=== PATIENT | female | born 1980 | race American Indian/Alaskan Native ===

== ENCOUNTER 2016-10-03 21:42 | Inpatient (IN) | payer BC ==
[2016-10-03] MEDS ORDERED: DiphenhydrAMINE 50 mg/ml Inj IVP STA (23:19)
[2016-10-03] MEDS ORDERED: Sodium Chloride 0.9% 1,000 ML IV SCH (23:30)
[2016-10-03 23:45] LABS: PH,URINE 6.5 (4.7-8.0); URINE BILIRUBIN NEGATIVE (NEGATIVE); URINE BLOOD NEGATIVE (NEGATIVE); URINE GLUCOSE (UA) NEGATIVE (NEGATIVE); URINE KETONE NEGATIVE (NEGATIVE); URINE LEUKOCYTE ESTERASE NEGATIVE Leu/uL (NEGATIVE); URINE PROTEIN 100 mg/dL (<30 mg/dL)
[2016-10-04 00:12] LABS: URINE APPEARANCE SL CLOUDY (CLEAR); URINE COLOR YELLOW (YELLOW)
[2016-10-04 00:14] LABS: URINE RBC 0 - 2 /hpf (0-2); URINE WBC 0 - 2 /hpf (0-6)
[2016-10-04 00:15] LABS: BASO # 0.01 K/mm3 (0.0-2.0); BASO % 0.1 % (0.0-3.0); GRAN # 14.74 (1.4-6.5); GRAN % 90.3 % (50.0-68.0); HEMATOCRIT 31.8 % (36.0-48.0); LYMPH # 0.9 (1.2-3.4); LYMPH % 5.8 % (22.0-35.0); MEAN CELL VOLUME 67.8 fl (80.0-105.0); MEAN CORPUSCULAR HEMOGLOBIN 22.4 pg (25.0-35.0); MEAN PLATELET VOLUME 8.3 fl (7.0-11.0); MONO # 0.6 (0.1-0.6); MONO % 3.8 % (1.0-6.0); PLATELET COUNT 377 10^3/uL (120.0-450.0); RED CELL DISTRIBUTION WIDTH 17.5 % (11.5-14.5); WHITE BLOOD COUNT 16.3 10^3/ul (4.5-11.0)
[2016-10-04 00:15] LABS: URINE BACTERIA SMALL (NEG)
[2016-10-04 00:19] LABS: ALB/GLOB RATIO 1.3 (1.1-1.8); ALKALINE PHOSPHATASE 64 U/L (38-133); ALT/SGPT 26 U/L (7-56); AST/SGOT 31 U/L (15-39); BILIRUBIN,TOTAL 0.1 mg/dL (0.2-1.3); BLOOD UREA NITROGEN 14 mg/dL (7-21); CALCIUM 8.9 mg/dL (8.4-10.5); CARBON DIOXIDE 18 mmol/L (21-33); GFR AFRICAN-AMERICAN > 60; GLUCOSE,RANDOM 182 mg/dL (70-110); POTASSIUM 3.8 mmol/L (3.6-5.0); SODIUM 136 mmol/L (132-148); TOTAL PROTEIN 7.7 g/dL (5.8-8.3)
[2016-10-04 00:25] LABS: CHLORIDE 103 mmol/L (98-107)
[2016-10-04 00:51] LABS: BAND 3 % (0-2); HYPOCHROMIA SLIGHT; NEUTROPHIL 86 % (50.0-70.0); PLATELET ESTIMATE NORMAL (NORMAL)
[2016-10-04 00:52] LABS: MICROCYTOSIS 1+
[2016-10-04 02:05] LABS: VENOUS BLOOD GAS BASE EXCESS -3.7 mmol/L (0.0-2.0)
[2016-10-04] MEDS ORDERED: Vancomycin 1gm in NS 250ml 1 GM/250 ML BAG IVPB STA (02:09)
[2016-10-04] MEDS: Sodium Chloride 0.9% 2,500 ML IV STA ×2 (02:22→02:23)
[2016-10-04] MEDS ORDERED: cefTRIAXone 2 GM IN NS 2 GM/100 ML BAG IVPB ONE (02:30)
[2016-10-04] MEDS ORDERED: Iohexol 350 MG/100 ML VIAL ONE (02:33)
--- NOTE | 2016-10-04 03:01 | ED PDOC ---
Arrival/HPI - General Chief Complaint: Headache Time Seen by Provider: 10/03/16 22:55 Historian: Patient - History of Present Illness Narrative History of Present Illness (Text): 10/04/16 22:00 Renetta Sprague is a 36 year old female, whose past medical history includes anemia , presents to the emergency department with multiple complaints consisting of sudden onset of body aches, nausea, throbbing headache at the top of the head, posterior neck pain, chills and cough. Patient reports she was feeling well earlier today, until a few hours prior to arrival. She notes taking an Aleve but there was no significant relief and states she does not suffer from migraines. Patient denies chest pain, shortness of breath, fever, vomiting, diarrhea, abdominal pain, dizziness or other complaints. PMD: Dr. Cabrera Time/Duration: Prior to Arrival Symptom Onset: Sudden Symptom Course: Unchanged Quality: Aching, Throbbing (headache on top of head) Associated Symptoms (Text): body aches, nausea, headache, posterior neck pain, cough, and chills. Past Medical History - Provider Review Nursing Documentation Reviewed: Yes - Infectious Disease Hx of Infectious Diseases: None - Tetanus Immunization Tetanus Immunization: Unknown - Past Medical History Past Medical History: No Previous - Neurological Hx Neurological Disorder: Yes Other/Comment: Brain tumor as a child - Musculoskeletal/Rheumatological Hx Musculoskeletal Disorders: Yes Other/Comment: Nerve damage - Psychiatric Hx Depression: No Hx Emotional Abuse: No Hx Physical Abuse: No Hx Substance Use: No - Surgical History Other/Comment: Brain tumor removal during childhood - Anesthesia Hx Anesthesia: Yes Hx Anesthesia Reactions: No - Suicidal Assessment Feels Threatened In Home Enviroment: No Family/Social History - Physician Review Nursing Documentation Reviewed: Yes Family/Social History: Unknown Family HX Smoking Status: Light Smoker < 10 Cigarettes Daily Hx Alcohol Use: Yes Frequency of alcohol use: Socially Hx Substance Use: No Hx Substance Use Treatment: No Allergies/Home Meds Allergies/Adverse Reactions: Allergies No Known Allergies Allergy (Verified 10/03/16 22:33) Home Medications: Home Meds Medication Instructions Recorded Confirmed No Known Home Med [No Known Home 02/02/14 10/03/16 Med] Review of Systems - Review of Systems Constitutional: Other (body aches and chills ). absent: Fevers Respiratory: Cough. absent: SOB Gastrointestinal: Nausea. absent: Vomiting Genitourinary Female: absent: Dysuria Musculoskeletal: Neck Pain Neurological: Headache Physical Exam Vital Signs Reviewed: Yes Vital Signs Temp Pulse Resp BP Pulse Ox 10/04/16 06:05 87 18 120/64 99 10/04/16 05:30 96 H 16 142/70 99 10/04/16 04:30 104 H 18 111/53 L 99 10/04/16 03:15 100.7 F H 116 H 20 113/57 L 100 10/04/16 02:00 120 H 20 112/57 L 100 10/04/16 01:40 118 H 18 109/58 L 100 10/04/16 01:23 102.7 F H 115 H 20 114/54 L 100 10/04/16 00:19 98.1 F 10/03/16 22:33 99.8 F H 110 H 20 146/73 98 Temperature: Afebrile Blood Pressure: Normal Pulse: Tachycardic Respiratory Rate: Normal Appearance: Positive for: Well-Appearing, Non-Toxic, Comfortable Pain Distress: Mild Mental Status: Positive for: Alert and Oriented X 3 - Systems Exam Head: Present: Atraumatic, Normocephalic Pupils: Present: PERRL Extroacular Muscles: Present: EOMI Conjunctiva: Present: Normal Mouth: Present: Dry Neck: Present: Normal Range of Motion, MIDLINE TENDERNESS Respiratory/Chest: Present: Clear to Auscultation, Good Air Exchange. No: Respiratory Distress, Accessory Muscle Use Cardiovascular: Present: Regular Rate and Rhythm, Normal S1, S2. No: Murmurs Abdomen: Present: Normal Bowel Sounds. No: Tenderness, Distention, Peritoneal Signs Back: Present: Normal Inspection Upper Extremity: Present: Normal Inspection. No: Cyanosis, Edema Lower Extremity: Present: Normal Inspection. No: Edema Neurological: Present: GCS=15, CN II-XII Intact, Speech Normal Skin: Present: Warm, Dry, Normal Color. No: Rashes Psychiatric: Present: Alert, Oriented x 3, Normal Insight, Normal Concentration Medical Decision Making ED Course and Treatment: 10/04/16 Impression: 36 year old female with multiple complaints consisting of body aches, nausea, headache, posterior neck pain, chills, and cough Plan: -- CT Cervical Spine with contrast -- Head CT without contrast -- Chest X-ray -- Labs -- Urinalysis -- Benadryl, Reglan, Tylenol, Rocephin, Vancomycin, and Sodium Chloride -- Reassess and disposition Progress Notes: 10/04/16 00:20 Reevaluation: On reevaluation the patient's blood work showed to have elevated blood count of 16 and there were noted bands. A head CT without contrast and cervical spine CT with contrast was ordered. 10/04/16 00:50 CT Head Without Intravenous Contrast FINDINGS: Brain: Unremarkable. No hemorrhage. No significant white matter disease. No edema. Ventricles: Unremarkable. No ventriculomegaly. Bones/joints: Patient status post occipital craniectomy with postoperative changes in the posterior fossa No acute fracture. Soft tissues: Unremarkable. Sinuses: Opacified sphenoid sinus compatible with sinusitis. Mastoid air cells: Unremarkable as visualized. No mastoid effusion. IMPRESSION: Opacified sphenoid sinus compatible with sinusitis. 10/04/16 00:50 CT Cervical Spine With Intravenous Contrast FINDINGS: Vertebrae: Unremarkable. No acute fracture. Discs/spinal canal/neural foramina: Cervical degenerative disc disease and facet joint arthropathy noted. No spinal canal stenosis. Soft tissues: Unremarkable. Lung apices: Unremarkable as visualized. IMPRESSION: No acute findings. 10/04/16 07:14 Patient seen and examined with ALEJANDRA Martinez; given fever and sepsis picture with focus of headache and neck pain, patient needing to be ruled out for meningitis. LP done (in sitting position) with cloudy fluid. Analysis showing nearly 7000 WBC (w/ just 12 RBCs) and protein of 248. Preliminary count suggests 88% segmented on the diff, but awaiting official results. Findings are consistent with possible bacterial meningitis - she was already given 2 grams of rocephin and 1 G of vancomycin. Acyclovir and ampicillin added. Case was discussed with Dr. Bettencourt. Consult for Dr. Liang. Case also discussed with Dr. Carvajal for ICU admission. - Lab Interpretations Lab Results: 10/03/16 23:50 10/03/16 23:50 Lab Results 10/04/16 04:45: pO2 38, VBG pH 7.24 L, VBG pCO2 48.0, VBG HCO3 20.6 L, VBG Total CO2 22.1, VBG O2 Sat (Calc) 69.3 H, VBG Base Excess -6.9 L, VBG Potassium 4.1, Glucose 149 H, Lactate 3.1 H, FiO2 21.0, Sodium 140.0, Chloride 109.0 H, Venous Blood Potassium 4.1 10/04/16 04:35: Fluid Type Spinal fluid, CSF Volume 2 H, CSF Appearance Cloudy, CSF WBC 6852.0 H, CSF RBC 12.0 H, CSF Total Cell Counted 100 H, CSF Neutrophils 89 H, CSF Lymphocytes 1.0 H, CSF Monos/Macrophages 10 H, CSF Comment Clear 10/04/16 04:35: CSF Glucose 67, CSF Total Protein 248.0 H* 10/04/16 01:45: pO2 174 H, VBG pH 7.40, VBG pCO2 33.0 L, VBG HCO3 20.4 L, VBG Total CO2 21.4 L, VBG O2 Sat (Calc) 99.8 H, VBG Base Excess -3.7 L, VBG Potassium 4.1, Glucose 175 H, Lactate 3.6 H, FiO2 21.0, Sodium 135.0, Chloride 105.0, Venous Blood Potassium 4.1 10/03/16 23:50: Sodium 136, Potassium 3.8, Chloride 103, Carbon Dioxide 18 L, Anion Gap 19, BUN 14, Creatinine 0.9, Est GFR ( Amer) > 60, Est GFR (Non- Af Amer) > 60, Random Glucose 182 H, Calcium 8.9, Total Bilirubin 0.1 L, AST 31 , ALT 26, Alkaline Phosphatase 64, Total Protein 7.7, Albumin 4.3, Globulin 3.4 , Albumin/Globulin Ratio 1.3 10/03/16 23:50: WBC 16.3 H, RBC 4.69, Hgb 10.5 L, Hct 31.8 L, MCV 67.8 L, MCH 22.4 L, MCHC 33.0, RDW 17.5 H, Plt Count 377, MPV 8.3, Gran % 90.3 H, Lymph % ( Auto) 5.8 L, [place] % (Auto) 3.8, Eos % (Auto) 0.0 L, Baso % (Auto) 0.1, Gran # 14.74 H, Lymph # 0.9 L, [place] # 0.6, Eos # 0.0, Baso # 0.01, Neutrophils % ( Manual) 86 H, Band Neutrophils % 3 H, Lymphocytes % (Manual) 8 L, Monocytes % ( Manual) 3, Platelet Evaluation Normal, Hypochromasia Slight, Microcytosis ( manual) 1+ 10/03/16 23:33: Urine Color Yellow, Urine Appearance Sl cloudy, Urine pH 6.5, Ur Specific [place] 1.025, Urine Protein 100 H, Urine Glucose (UA) Negative, Urine Ketones Negative, Urine Blood Negative, Urine Nitrate Negative, Urine Bilirubin Negative, Urine Urobilinogen 1.0 H, Ur Leukocyte Esterase Negative, Urine RBC 0 - 2, Urine WBC 0 - 2, Ur Epithelial Cells 4 - 5, Urine Bacteria Small I have reviewed the lab results: Yes - RAD Interpretation Radiology Orders: 10/04/16 00:45 CERVICAL SPINE W/CONTRAST [CT] Stat HEAD W/O CONTRAST [CT] Stat 10/04/16 01:31 CHEST ONE VIEW [RAD] Stat Manager Of Engineering: Radiologist - Medication Orders Current Medication Orders: Acyclovir 270 mg/ Sodium (Chloride) 100 mls @ 100 mls/hr IV STAT STA PRN Reason: Protocol Stop: 10/04/16 07:56 Ampicillin 2 gm/ Sodium (Chloride) 100 mls @ 200 mls/hr IVPB STAT STA Stop: 10/04/16 07:29 Discontinued Medications Acetaminophen (Tylenol 325mg Tab) 975 mg PO STAT STA Stop: 10/04/16 01:34 Last Admin: 10/04/16 01:39 Dose: 975 mg Diphenhydramine HCl (Benadryl) 25 mg IVP STAT STA Stop: 10/03/16 23:20 Last Admin: 10/03/16 23:57 Dose: 25 mg Sodium Chloride (Sodium Chloride 0.9%) 1,000 mls @ 200 mls/hr IV .Q5H GUERO Last Admin: 10/03/16 23:56 Dose: 200 mls/hr Sodium Chloride (Sodium Chloride 0.9%) 2,500 mls @ 999 mls/hr IV .Q2H31M STA Stop: 10/04/16 04:38 Last Admin: 10/04/16 02:22 Dose: 999 mls/hr Ceftriaxone Sodium (Rocephin 2 Gm Ivpb) 2 gm in 100 mls @ 100 mls/hr IVPB ONCE ONE PRN Reason: Protocol Stop: 10/04/16 03:29 Last Admin: 10/04/16 03:13 Dose: 100 mls/hr Vancomycin HCl (Vancomycin 1gm) 1 gm in 250 mls @ 133.333 mls/hr IVPB STAT STA PRN Reason: Protocol Stop: 10/04/16 04:01 Last Admin: 10/04/16 04:59 Dose: 133.333 mls/hr Iohexol (Omnipaque 350 100 Ml) Confirm Administered Dose 350 mg .ROUTE .STK-MED ONE Stop: 10/04/16 02:34 Lidocaine HCl (Lidocaine 1% (20ml)) Confirm Administered Dose 20 ml .ROUTE .STK- MED ONE Stop: 10/04/16 03:41 Metoclopramide HCl (Reglan) 10 mg IVP STAT STA Stop: 10/03/16 23:24 Last Admin: 10/03/16 23:56 Dose: 10 mg - Scribe Statement The provider has reviewed the documentation as recorded by the Scribe 10/04/2016 Mckenna Momin Provider Scribe Attestation: All medical record entries made by the Scribe were at my direction and personally dictated by me. I have reviewed the chart and agree that the record accurately reflects my personal performance of the history, physical exam, medical decision making, and the department course for this patient. I have also personally directed, reviewed, and agree with the discharge instructions and disposition. Disposition/Present on Arrival - Present on Arrival Any Indicators Present on Arrival: No History of DVT/PE: No History of Uncontrolled Diabetes: No Urinary Catheter: No History of Decub. Ulcer: No History Surgical Site Infection Following: None - Disposition Have Diagnosis and Disposition been Completed?: Yes Diagnosis: Meningitis Disposition: HOSPITALIZED Disposition Time: 03:00 Patient Plan: Admission Condition: CRITICAL Forms: [employer] (Armenian) - Lumbar Puncture Procedure LP Procedure: Discussed Procedure W/Pt, Consent Form Completed, Head CT Completed, Use Of Sterile Technique, Injection Site Prepped W/Betadine Position for Procedure: Sitting Injection Location: L 4-5 (Fluid obtained appears cloudy. Tolerated procedure well.)
[2016-10-04] MEDS ORDERED: Lidocaine 1%/Epinephrine 1:100000 30 ml vial IJ STA (03:34)
[2016-10-04] MEDS ORDERED: Lidocaine 1% Inj (20ml) ONE (03:40)
[2016-10-04 04:46] LABS: FLUID TYPE SPINAL FLUID
[2016-10-04 05:10] LABS: VENOUS BLOOD GAS BASE EXCESS -6.9 mmol/L (0.0-2.0); VENOUS BLOOD PH 7.24 (7.32-7.43)
[2016-10-04 06:19] LABS: CSF COMMENT CLEAR
[2016-10-04] MEDS ORDERED: SODIUM CHLORIDE 0.9% IV STA (06:57)
[2016-10-04] MEDS ORDERED: ACYCLOVIR IV STA (06:57)
[2016-10-04] MEDS ORDERED: Ampicillin 2 GM in Sodium Chloride 0.9% 100 ML IVPB STA (07:00)
[2016-10-04 07:11] LABS: CSF NEUTROPHIL 89 % (0-0); CSF TOTAL COUNT 100 (0-0)
--- NOTE | 2016-10-04 07:32 | CP.PCM.HP ---
<Rose Kwong - Last Filed: 10/04/16 11:42> History of Present Illness - History of Present Illness History of Present Illness: This is a 36Y F with PMH anemia and benign brain tumor who came to ED with headache and neck pain x 2 days. Patient reports the headache is at the top of her head and radiated down to her neck. She also reports having subjective fevers. She denies sick contacts, recent travel, sexual activity, IVDA or working with many people or small children. She denies CP, SOB, n/v/d, numbness/ tingling, vision changes, palpitations, cough or dysuria/hematuria. Patient lives with daughter who is 21 and works at [employer]. Neither of them had meningitis vaccines. In ED, patient had head CT which was negative as well as LP. CXR showed no active disease. 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 Denies being sexually active. Lives in 3 family home with daughter. 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 FH: Non contributory Present on Admission - Present on Admission Any Indicators Present on Admission: No Review of Systems - Constitutional Constitutional: Chills, Fever, Headache - EENT Eyes: absent: Change in Vision Ears: absent: Decreased Hearing, Ear Discharge Nose/Mouth/Throat: absent: Nasal Congestion, Neck Pain, Neck Mass - Cardiovascular Cardiovascular: absent: Chest Pain, Leg Edema, Pedal Edema, Syncope - Respiratory Respiratory: absent: Cough, Dyspnea, Hemoptysis - Gastrointestinal Gastrointestinal: absent: Abdominal Pain, Diarrhea, Nausea, Vomiting - Genitourinary Genitourinary: absent: Change in Urinary Stream, Dysuria, Pyuria - Musculoskeletal Musculoskeletal: Neck Pain. absent: Myalgias, Numbness, Tingling - Integumentary Integumentary: absent: Bleeding Lesions, Change in Hair, Change in Pigmentation - Neurological Neurological: Headaches. absent: Confusion, Dizziness, Numbness, Loss of Vision , Memory Loss, Syncope, Tingling, Tremor, Vertigo, Weakness - Psychiatric Psychiatric: absent: Anxiety, Depression Past Patient History - Infectious Disease Hx of Infectious Diseases: None - Tetanus Immunizations Tetanus Immunization: Unknown - Past Social History Smoking Status: Light Smoker < 10 Cigarettes Daily Alcohol: None Drugs: Denies Home Situation {Lives}: With Family - NEUROLOGICAL Hx Neurological Disorder: Yes Other/Comment: Brain tumor as a child - MUSCULOSKELETAL/RHEUMATOLOGICAL Hx Musculoskeletal Disorders: Yes Other/Comment: Nerve damage - PSYCHIATRIC Hx Depression: No Hx Emotional Abuse: No Hx Physical Abuse: No Hx Substance Use: No - SURGICAL HISTORY Other/Comment: Brain tumor removal during childhood - ANESTHESIA Hx Anesthesia: Yes Hx Anesthesia Reactions: No Meds Allergies/Adverse Reactions: Allergies Allergy/AdvReac Type Severity Reaction Status Date / Time No Known Allergies Allergy Verified 10/03/16 22:33 Physical Exam - Constitutional Appears: No Acute Distress - Head Exam Head Exam: ATRAUMATIC, NORMAL INSPECTION, NORMOCEPHALIC - Eye Exam Eye Exam: Normal appearance, PERRL Pupil Exam: NORMAL ACCOMODATION, PERRL - ENT Exam ENT Exam: Mucous Membranes Moist - Respiratory Exam Respiratory Exam: Clear to Auscultation Bilateral, NORMAL BREATHING PATTERN. absent: Rales, Rhonchi, Wheezes - Cardiovascular Exam Cardiovascular Exam: REGULAR RHYTHM, +S1, +S2. absent: Gallop, Rubs, Systolic Murmur - GI/Abdominal Exam GI & Abdominal Exam: Normal Bowel Sounds, Soft. absent: Mass, Rebound, Rigid, Tenderness - Extremities Exam Extremities exam: Positive for: normal inspection. Negative for: calf tenderness, pedal edema - Neurological Exam Neurological exam: Alert, CN II-XII Intact, Oriented x3 - Expanded Neurological Exam Expanded Patient oriented to: person, place, time Cranial nerves: EOM's Intact: Normal, Facial P[place]y w/Forehead Movement: Normal , Facial [place]alsey w/o Forehead Movement: Normal, Facial Sensation: Normal Sensory exam: Lower Extremity Light Touch: Normal, Lower Extremity Pin Prick: Normal, Lower Extremity Temperature: Normal, Upper Extremity 2 Point Discrimination: Normal, Upper Extremity Light Touch: Normal, Upper Extremity Pin Prick: Normal, Upper Extremity Temperature: Normal Neuro motor strength exam: Left Upper Extremity: 5, Right Upper Extremity: 5, Left Lower Extremity: 5, Right Lower Extremity: 5 Coma Scale Eye Opening: SPONTANEOUS Coma Scale Motor Response: OBEYS COMMANDS Coma Scale Verbal: Oriented Coma Scale Total: 15 - Psychiatric Exam Psychiatric exam: Normal Affect, Normal Mood - Skin Skin Exam: Dry, Intact, Normal Color, Warm - Additional Findings Additional findings: + Brudinkski sign, Neg Kernig sign Results - Vital Signs Recent Vital Signs: Last Vital Signs Temp 100.7 F H 10/04/16 03:15 Pulse 87 10/04/16 06:05 Resp 18 10/04/16 06:05 BP 120/64 10/04/16 06:05 Pulse Ox 99 10/04/16 06:05 - Labs Result Diagrams: 10/03/16 23:50 10/03/16 23:50 Assessment & Plan - Assessment and Plan (Free Text) Assessment: This is a 36Y F with PMH anemia, brain tumor admitted for bacterial meningitis. Plan: 1. Meningitis (Bacterial) - Etiology unclear - LP showed elevated WBC and protein suggesting bacterial meningitis - ID consulted - Dilaudid prn pain, Zofran prn nausea - Nephro consulted - Head Ct negative, CT spine negative - MRI brain showed opacified sinus, but no acute intracranial abnormality - Continue Decadron - Continue Rocephin, Vanc - Tylenol prn fever - Airborne precautions - HIV, RPR, procal, lactic acid 2. Anemia- Microcytic - Pt has history of anemia secondary to menorrhagia - Will check sickle cell screen - Hgb electrophoresis, iron studies - Will continue to monitor GI ppx: Protonix DVT ppx: SCDs Dispo: Patient's family notified to either go to ED or see PMD for prophylaxis for meningitis. Case seen, discussed with attending Humera Kwong PGY2 - Date & Time Date: 10/04/16 Time: 11:40 Decision To Admit - Pt Status Changed To: Hospital Disposition Of: Inpatient Admission - Admit Certification Admit to Inpatient:: After my assessment, the patient will require hospitalization for at least two midnights. This is because of the severity of symptoms shown, intensity of services needed, and/or the medical risk in this patient being treated as an outpatient. - . Bed Request Type: Critical Care Admitting Physician: Ced Bettencourt <Ced Bettencourt - Last Filed: 11/02/16 21:31> Results - Vital Signs Recent Vital Signs: Last Vital Signs Temp 98.2 F 10/09/16 08:40 Pulse 91 H 10/09/16 08:40 Resp 18 10/09/16 08:40 BP 117/79 10/09/16 08:40 Pulse Ox 100 08/27/17 08:40 - Labs Result Diagrams: 10/09/16 06:00 10/09/16 06:00 Attending/Attestation - Attestation I have personally seen and examined this patient.: Yes I have fully participated in the care of the patient.: Yes I have reviewed all pertinent clinical information: Yes
--- NOTE | 2016-10-04 07:47 | CT ---
PROCEDURE: CT Cervical Spine without contrast HISTORY: <fever, neck pain> COMPARISON: None available. TECHNIQUE: Axial computed tomography images were obtained of the cervical spine without the use of intravenous contrast. Coronal and sagittal reformatted images were created and reviewed. Radiation dose: Total exam DLP = 1135.22 mGy-cm. This CT exam was performed using one or more of the following dose reduction techniques: Automated exposure control, adjustment of the mA and/or kV according to patient size, and/or use of iterative reconstruction technique. FINDINGS: VERTEBRAE: No fracture. Cervical spine straightening - post occipital craniectomy changes noted. C5-6 and C6-7 cervical spondylosis DISCS/SPINAL CANAL/NEURAL FORAMINA: No significant central canal or neural foraminal stenosis. With the exception of mild -moderate left C6-7 neural foraminal compromise from endplate ridging and mild disc space narrowing at this level Discs heights are grossly preserved. -save C5-6 and C6-7 PARASPINAL SOFT TISSUES: A few hyperplastic bilateral cervical lymph nodes are noted OTHER FINDINGS: None. IMPRESSION: No cervical fracture or cervical lytic lesion. Post occipital craniectomy changes noted. There are also relative areas of hypodensity seen the posterior fossa likely relating to the post occipital craniectomy related changes for reasons for it. Please note the same-day V rad preliminary report for the CT head C5-6 and C6-7 cervical spondylosis with intervening disc space narrowing. The left-sided cervical spondylosis at C6-7 encroaches on the left are foramen- mild-moderate compromise is estimated
--- NOTE | 2016-10-04 07:48 | RAD ---
PROCEDURE: CHEST RADIOGRAPH, 1 VIEW HISTORY: Sepsis Patient COMPARISON: None available. FINDINGS: LUNGS: Clear. PLEURA: No pneumothorax or pleural fluid seen. CARDIOVASCULAR: Normal. OSSEOUS STRUCTURES: No significant abnormalities. VISUALIZED UPPER ABDOMEN: Normal. OTHER FINDINGS: None. IMPRESSION: No active disease. . No infiltrate appreciated
--- NOTE | 2016-10-04 09:09 | CT ---
PROCEDURE: CT HEAD WITHOUT CONTRAST. HISTORY: headache COMPARISON: None available. TECHNIQUE: Axial computed tomography images were obtained through the head/brain without intravenous contrast. Radiation dose: Total exam DLP = 725 mGy-cm. This CT exam was performed using one or more of the following dose reduction techniques: Automated exposure control, adjustment of the mA and/or kV according to patient size, and/or use of iterative reconstruction technique. FINDINGS: HEMORRHAGE: No intracranial hemorrhage. BRAIN: No mass effect or edema. There is an operative defect in the cerebellum on the right side. There is a suboccipital craniotomy defect. There are no acute intracranial findings VENTRICLES: Unremarkable. No hydrocephalus. CALVARIUM: Unremarkable. PARANASAL SINUSES: There is complete opacification of the sphenoid sinus. There is a focal bony defect on the left side of the sphenoid sinus seen on image 12 series 3. This could potentially be a source of intracranial infection. Follow-up is suggested. MASTOID AIR CELLS: Unremarkable as visualized. No inflammatory changes. OTHER FINDINGS: The report concurs with the preliminary [facility] report IMPRESSION: There is complete opacification of the sphenoid sinus. There is a focal bony defect on the left side of the sphenoid sinus seen on image 12 series 3. This could potentially be a source of intracranial infection. Follow-up is suggested. There are no acute intracranial findings
[2016-10-04] MEDS ORDERED: Gadodiamide 287 MG/ML VIAL (15ML) IV ONE (09:59)
[2016-10-04] MEDS: Sodium Chloride 0.9% 1,000 ML IV SCH ×2 (10:39→21:44)
[2016-10-04] MEDS ORDERED: HYDROmorphone 0.5 mg/0.5 ml ISec IVP PRN (11:00)
--- NOTE | 2016-10-04 11:21 | MRI ---
PROCEDURE: MRI BRAIN WITH AND WITHOUT CONTRAST HISTORY: CRANIECTOMY/??MENINIGITIS COMPARISON: CT of the head 10/04/2016 TECHNIQUE: Multiplanar, multisequence MR images of the brain were obtained with and without intravenous contrast enhancement. FINDINGS: HEMORRHAGE: None DWI: No evidence of an acute or early subacute infarction. BRAIN PARENCHYMA: No mass,mass effect or edema. There is a surgical defect in the right cerebellar hemisphere ENHANCEMENT: No abnormal intracranial enhancement. VENTRICLES: Unremarkable. No hydrocephalus. CRANIUM: Unremarkable. ORBITS: Grossly unremarkable. PARANASAL SINUSES/MASTOIDS: As seen on the CT scan there is complete opacification of the sphenoid sinus. The CT showed a defect in the left side of the sphenoid sinus which is difficult to appreciate on MRI. However there is no evidence of intracranial infection adjacent to this site. VASCULAR SYSTEM: Skull base flow voids intact. OTHER FINDINGS: None . IMPRESSION: Opacified sphenoid sinus. No evidence of intracranial infection
[2016-10-04 11:43] LABS: RETIC% 0.85 % (0.5-1.5)
[2016-10-04 11:45] LABS: INR 1.14 (0.93-1.08); PARTIAL THROMBOPLASTIN TIME 27.3 Seconds (23.7-30.8)
--- NOTE | 2016-10-04 12:00 | CP.PCM.CON ---
History of Present Illness - History of Present Illness History of Present Illness: 36 year old female with PMH of chronic anemia, obesity with BMI 33, history of brain tumor as a child S/P craniectomy and removal of tumor, neuropathy came in to [facility] complaining of headache and mild photophobia associated with some neck pain, fever and chills since yesterday. She does not have chronic headaches. She denies contact with sick children, no animal contacts, no travel to wooded areas, no denies insect bites, no bug bites. 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 She denies sore throat, no cough or colds, no chest pain, no SOB, no abdominal pain, no diarrhea, no dysuria. In the ED, lumbar puncture was done which showed CSF WBC's of 6852 and high CSF protein at 248. Infectious diseases consult is requested to further evaluate and manage. Review of Systems - Review of Systems All systems: reviewed and no additional remarkable complaints except (as per HPI ) Past Patient History - Infectious Disease Hx of Infectious Diseases: None - Tetanus Immunizations Tetanus Immunization: Unknown - Past Social History Smoking Status: Light Smoker < 10 Cigarettes Daily - NEUROLOGICAL Hx Neurological Disorder: Yes Other/Comment: Brain tumor as a child - MUSCULOSKELETAL/RHEUMATOLOGICAL Hx Musculoskeletal Disorders: Yes Other/Comment: Nerve damage - PSYCHIATRIC Hx Depression: No Hx Emotional Abuse: No Hx Physical Abuse: No Hx Substance Use: No - SURGICAL HISTORY Other/Comment: Brain tumor removal during childhood - ANESTHESIA Hx Anesthesia: Yes Hx Anesthesia Reactions: No Meds Allergies/Adverse Reactions: Allergies Allergy/AdvReac Type Severity Reaction Status Date / Time No Known Allergies Allergy Verified 10/03/16 22:33 - Medications Medications: Current Medications Acetaminophen (Tylenol 325mg Tab) 650 mg PO Q6H PRN PRN Reason: TEMP>=99.5F Sodium Chloride (Sodium Chloride 0.9%) 1,000 mls @ 100 mls/hr IV .Q10H GUERO Stop: 10/08/16 12:44 Ceftriaxone Sodium (Rocephin 2 Gm Ivpb) 2 gm in 100 mls @ 100 mls/hr IVPB BID GUERO PRN Reason: Protocol Vancomycin HCl 1.2 gm/ Sodium (Chloride) 250 mls @ 167 mls/hr IVPB Q12 GUERO PRN Reason: Protocol Pantoprazole Sodium (Protonix Inj) 40 mg IVP DAILY GUERO Physical Exam - Constitutional Additional comments: Still with headache but better - ENT Exam ENT Exam: Mucous Membranes Moist, Normal Oropharynx - Neck Exam Neck exam: Positive for: Meningismus. Negative for: Lymphadenopathy - Respiratory Exam Respiratory Exam: Decreased Breath Sounds. absent: Rales - Cardiovascular Exam Cardiovascular Exam: +S1, +S2 - GI/Abdominal Exam GI & Abdominal Exam: Soft. absent: Tenderness Results - Vital Signs Recent Vital Signs: Last Vital Signs Temp 98.6 F 10/04/16 09:12 Pulse 95 H 10/04/16 09:12 Resp 16 10/04/16 09:12 BP 128/102 H 10/04/16 09:12 Pulse Ox 100 10/04/16 09:12 - Labs Result Diagrams: 10/03/16 23:50 10/03/16 23:50 Assessment & Plan - Assessment and Plan (Free Text) Plan: Assessment Sepsis probably due to acute meningitis, suspect bacterial chronic anemia obesity with BMI 33 history of brain tumor as a child S/P craniectomy and removal of tumor neuropathy Plan Started patient on Vancomycin and Rocephin (has been given Ampicillin in the ED but patient currently has no immunocompromising condition and the patient is less than 50 years - will hold off on this; was also given Acyclovir but the patient's CSF analysis is more suggestive of bacterial infection and the patient does not currently exhibit unusual speech or behavior - will hold off on this well) Follow up CSF cx and blood cx Recommend droplet isolation for 24 hours and antibiotic prophylaxis for meningococcus for the daughter who lives with the patient will monitor clinically discussed with Dr. Bettencourt
[2016-10-04 12:02] LABS: IRON 15 ug/dL (45-180)
[2016-10-04 13:15] VITALS: BMI 32.9
[2016-10-04] MEDS ORDERED: Pneumococcal 23-Valent Vaccine IM ONE (13:15)
[2016-10-04] MEDS: cefTRIAXone 2 GM IN NS 2 GM/100 ML BAG IVPB SCH (14:01)
--- NOTE | 2016-10-04 14:46 | CP.CCUPN ---
CCU Subjective - Physician Review Events Since Last Encounter (Free Text): 10/04/16 14:38 36 y/o F who presented to the ICU w/ headache neck stiffness and vision disturbances . In the ER she was found to have signs of meningitis . CCU Objective - Vital Signs / Intake & Output Vital Signs (Last 4 hours): Vital Signs Temp Pulse Pulse Resp BP Pulse Ox 10/04/16 14:21 60 10/04/16 14:20 65 20 100 10/04/16 14:16 97 H 25 H 122/64 99 10/04/16 14:10 89 21 100 10/04/16 14:00 69 18 98 10/04/16 13:50 67 17 99 10/04/16 13:40 66 18 99 10/04/16 13:30 82 100 10/04/16 13:20 99 10/04/16 13:10 103 H 17 99 10/04/16 13:03 98.8 F 95 H 95 H 16 128/102 H 10/04/16 13:00 94 H 21 99 10/04/16 12:51 85 20 122/57 L 99 10/04/16 12:50 72 20 99 10/04/16 12:40 73 24 99 10/04/16 12:30 75 19 99 10/04/16 12:20 90 47 H 98 10/04/16 12:10 101 H 24 96 10/04/16 12:00 98.4 F 92 H 18 100 10/04/16 11:57 90 23 121/63 100 10/04/16 11:50 103 H 21 100 10/04/16 11:40 98 H 14 100 10/04/16 11:30 98 H 20 100 10/04/16 11:23 98.8 F 10/04/16 11:20 96 H 16 100 10/04/16 11:10 65 18 99 10/04/16 11:00 80 12 100 10/04/16 10:52 86 22 145/58 L 99 10/04/16 10:50 100 H 96 10/04/16 10:40 102 H 29 H 100 Intake and Output (Last 8hrs): Intake & Output 10/03/16 10/04/16 10/04/16 22:59 06:59 14:59 Weight 180 lb Other: Voiding Method Bedside Commode - Physical Exam Head: Positive for: Atraumatic, Normocephalic Pupils: Positive for: PERRL Extroacular Muscles: Positive for: EOMI Conjunctiva: Positive for: Normal Mouth: Positive for: Moist Mucous Membranes, Dry Pharnyx: Positive for: Normal Nose (External): Positive for: Atraumatic Neck: Positive for: Normal Range of Motion, Meningeal Signs, MIDLINE TENDERNESS Respiratory/Chest: Positive for: Clear to Auscultation, Good Air Exchange. Negative for: Respiratory Distress, Accessory Muscle Use Cardiovascular: Positive for: Regular Rate and Rhythm, Normal S1, S2. Negative for: Murmurs Abdomen: Positive for: Normal Bowel Sounds. Negative for: Tenderness, Distention, Peritoneal Signs Back: Positive for: Normal Inspection Upper Extremity: Positive for: Normal Inspection. Negative for: Cyanosis, Edema Lower Extremity: Positive for: Normal Inspection. Negative for: Edema Neurological: Positive for: GCS=15, CN II-XII Intact, Speech Normal Skin: Positive for: Warm, Dry, Normal Color. Negative for: Rashes Psychiatric: Positive for: Alert, Oriented x 3, Normal Insight, Normal Concentration - Medications Active Medications: Active Medications Generic Name Dose Route Start Last Admin Trade Name Freq PRN Reason Stop Dose Admin Acetaminophen 650 mg 10/04/16 08:46 Tylenol 325mg Tab PO Q6H PRN TEMP>=99.5F Dexamethasone 10 mg 10/04/16 11:30 10/04/16 11:40 Decadron Inj IVP 10/08/16 11:31 10 mg Q6H GUERO Administration Hydromorphone HCl 0.5 mg 10/04/16 11:00 Dilaudid IVP Q4H PRN Pain, severe (8-10) Sodium Chloride 1,000 mls @ 100 mls/hr 10/04/16 08:45 10/04/16 10:39 Sodium Chloride 0.9% IV 10/08/16 12:44 100 mls/hr .Q10H GUERO Administration Ceftriaxone Sodium 2 gm in 100 mls @ 100 mls/hr 10/04/16 14:00 10/04/16 14:01 Rocephin 2 Gm Ivpb IVPB 100 mls/hr BID GUERO Administration Protocol Vancomycin HCl 1.25 gm/ Sodium 250 mls @ 167 mls/hr 10/04/16 10:00 10/04/16 10:40 Chloride IVPB 167 mls/hr Q12 GUERO Administration Protocol Ondansetron HCl 4 mg 10/04/16 11:00 Zofran Inj IVP Q4H PRN Nausea/Vomiting Pantoprazole Sodium 40 mg 10/04/16 10:00 10/04/16 10:42 Protonix Inj IVP 40 mg DAILY GUERO Administration - Patient Studies Lab Studies: Lab Studies 10/04/16 10/04/16 10/04/16 Range/Units 11:30 11:30 11:00 Retic Count 0.85 (0.5-1.5) % PT (9.9-11.8) Seconds INR (0.93-1.08) APTT (23.7-30.8) Seconds Lactic Acid 0.9 (0.7-2.1) mmol/L Iron 15 L (45-180) ug/dL TIBC 366 (265-497) ug/dL % Saturation 4 L (20-55) % 10/04/16 Range/Units 11:00 Retic Count (0.5-1.5) % PT 12.3 H (9.9-11.8) Seconds INR 1.14 H (0.93-1.08) APTT 27.3 (23.7-30.8) Seconds Lactic Acid (0.7-2.1) mmol/L Iron (45-180) ug/dL TIBC (265-497) ug/dL % Saturation (20-55) % Laboratory Results - last 24 hr 10/04/16 10/04/16 10/04/16 11:00 11:00 11:30 Retic Count 0.85 PT 12.3 H INR 1.14 H APTT 27.3 Lactic Acid 0.9 Iron TIBC % Saturation 10/04/16 11:30 Retic Count PT INR APTT Lactic Acid Iron 15 L TIBC 366 % Saturation 4 L EKG/Cardiology Studies: Cardiology / EKG Studies 10/04/16 11:12 EKG [ELECTROCARDIOGRAM] Routine Comment: Reason For Exam: change in rhythm Review of Systems - EENT Eyes: UNREMARKABLE - Breasts Breasts: UNREMARKABLE - Cardiovascular Cardiovascular: UNREMARKABLE - Respiratory Respiratory: UNREMARKABLE Critical Care Progress Note - Ventilator Checklist Daily Spontaneous Breathing Trial: Yes PUD Prophalyxis: Yes DVT Prophylaxis: Yes - Nutrition Nutrition: Nutrition Category Date Time Status Heart Healthy Diet [DIET] Diets 10/04/16 Dinner Ordered Assessment/Plan - Assessment and Plan (Free Text) Assessment: 36 y/o F acute signs and symptoms of meningitis likely bacterial . Started on Empiric abx w/ vancomycin and Zosyn and given Decadron. LP done w/ elevated WBC and low glucose and neutrophil predominance . Awaiting CX from Micro. Isolation started and family and exposure Prophylaxis to be determined. Likely source in Sinusitis and repeat infections in the past 2 months with two courses of Augmentin . MRi done, no acute findings noted. dvt p cc time 65 min
--- NOTE | 2016-10-04 19:12 | CARD ---
APPROVED REPORT EKG Measurement Heart [id number] <Conclusion> Normal sinus rhythm Normal ECG
--- NOTE | 2016-10-04 23:01 | HP ---
HISTORY OF PRESENT ILLNESS: The patient is a 36-year-old female, who presented to the emergency room in the late night hours of 10/03 complaining of headache, body aches and questionable photophobia. The patient states that she was in her usual state of health until day before yesterday. The patient has been complaining of sudden onset of body aches, nausea, throbbing headache at the top of the head, neck pain, chills and cough, and fever, took Aleve without any response. REVIEW OF SYSTEMS: A 13-system review was done, pertinent positive per above. CODE STATUS: FULL CODE. LIVING WILL/ADVANCED DIRECTIVE: None. ALLERGIES: None. HEIGHT: 5 feet 2 inches. WEIGHT: 180. BMI: 33. HOME MEDICATIONS: No known home medications. SOCIAL HISTORY: Denies communicable/transmissible disease. Denies any high-risk sexual behavior. Denies any travel history. Denies any exposure to any sick or ill people. The patient denies substance abuse. Positive occasional alcohol use and positive smoker of the cigarettes. MENSTRUAL HISTORY: The patient denies being . FAMILY HISTORY: Not available. 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 PAST MEDICAL HISTORY: Significant for anemia, on no medication, history of a benign brain tumor as a child, status post craniectomy. PHYSICAL EXAMINATION: GENERAL: The patient was seen in the ICU bed 5. VITAL SIGNS: T-max is 102.7 down to 100, heart rate is 95, 87, 110, 115, 120, average blood pressure systolic 110 and 120s, diastolic in 50s and 60s, respirations 18 to 20, and O2 sat is 98% to 100%. The patient is seen lying in the bed. HEENT: Head examination shows previous craniectomy, with a surgical scar in the posterior neck area. Pinkish pale conjunctivae. Dry oral mucosa. There is some tenderness in the posterior cervical spine area. NECK: There is no gross neck rigidity or Kernig signs. NEUROLOGIC: The patient's cranial nerves II to XII were intact. Speech is normal. CARDIOVASCULAR: S1 and S2. Regular rhythm. LUNGS: No rales, crackles, or wheezing. ABDOMEN: Soft. Positive bowel sounds. No costovertebral angle tenderness. No guarding. No rigidity. No rebound tenderness. GENITALIA: Female. RECTAL: Deferred. EXTREMITIES: Show no pitting edema. No calf tenderness and no Homans' sign. NEUROLOGIC: The patient is alert, awake, oriented x3. GAIT: Not tested. MUSCULOSKELETAL: Show body mass index of 33. DIAGNOSTIC DATA: WBC 16.3, hemoglobin and hematocrit are 10.5 and 32, MCV 67, and platelets 377. Granulocytes 90, bands 3, lactate is 3.6 and 3.1. VBG, pH 7.40, 7.24. Sodium 136, potassium 3.8, chloride 103, CO2 18, anion gap 19, BUN 14, creatinine 0.9, GFR greater than 60, glucose 182. LFTs are normal. Urine pH 6.5, specific gravity 1.025, 100 protein, small bacteria. The patient had a spinal tap done in the ER by Dr. Méndez. WBC 6852, RBC 12, neutrophils 89, glucose 67, CSF total protein 248. The patient had CT of the cervical spine and CT of the head and a chest x-ray, CT of the cervical spine. CT of the head shows right cerebellar operative defect with suboccipital craniotomy. Complete opacification of the sphenoid sinus and focal bony defect at the left side of the sphenoid sinus. Cervical spine CT shows post occipital craniectomy and craniotomy with C5-C7 spondylosis, left C6-C7 neural foramen compromise disc space narrowing. Chest x-ray was negative. The patient was seen in the emergency room by Dr. Méndez. The patient underwent a spinal tap, lumbar puncture. The patient was given acyclovir 270 mg, ampicillin 2 g, Tylenol was given, Benadryl 25 given, IV fluid 1 liter was given. The patient was given Rocephin 2 g, vancomycin 1 g was given, Reglan 10 mg was given. The patient was then evaluated in the ER. The patient's case was referred by the ER physician to the fitness teacher. The patient was evaluated for admission to the ICU. IMPRESSION: 1. Most likely bacterial meningitis. 2. High-grade fever. 3. Tachycardia. 4. Hypotension. 5. Systemic inflammatory response syndrome. 6. Leukocytosis. 7. Microcytic anemia. 8. Bandemia. 9. Lactic acidosis. 10. Hyperglycemia. 11. Proteinuria. 12. Bacteriuria. 13. Post occipital craniotomy and craniectomy with C5, C6, C7 cervical spondylosis. 14. Cervical spine foramen narrowing and degenerative disc disease. 15. Bilateral hyperplastic cervical lymphadenopathy. 16. Right cerebellar suboccipital craniotomy and craniectomy. 17. Sphenoid sinus complete opacification with the left sphenoid sinus bony defect, possible intracranial infection. PLAN: At this time, the patient has been admitted to ICU. Repeat labs ordered. Blood cultures, CSF cultures, urine cultures, MRSA cultures ordered. Neurology and infectious disease consultation is ordered. RPR and procalcitonin level ordered. The patient is receiving ampicillin 2 g, Benadryl 25, Protonix 40 mg IV daily. The patient was started on Rocephin 2 g IV twice a day by infectious disease, IV fluid 0.9 at 100 mL an hour, Tylenol 650 q.6 p.r.n. The patient has been ordered vancomycin 1.25 g IV q.12. The patient also received acyclovir 270 mg. At present, the patient was seen in the ICU. The patient has been updated about her condition, diagnoses, treatment plan and management plan. The patient has been told about her diagnosis of meningitis. The patient has been advised that her daughter and close contact seek medical attention and treatment and prophylaxis for possible meningitis, which she is acknowledged and understood. Time spent in the entire management more than 1 hour and 55 minutes. The patient's examination, review of data, discussing with the job service consultant, times spent is more than 1 hours 55 minutes. Dictated and electronically signed, not read. Ced Bettencourt MD
[2016-10-04 23:49] LABS: HEMATOCRIT 32.4 % (35.0-45.0); HEMOGLOBIN 10.1 g/dL (11.7-15.5); RDW 19.8 % (11.0-15.0)
--- NOTE | 2016-10-05 00:34 | CON ---
REASON FOR CONSULTATION: Headaches. HISTORY OF PRESENT ILLNESS: The patient is a 36-year-old female who came to the emergency room with complaints of bad headaches. Her headache started yesterday. It was throbbing on top of head and back of the neck. She was also having some chills with headache and body aches. Her headache was not associated with any nausea, vomiting, photophobia or phonophobia. Since the headache was so severe, she decided to come to the emergency room. She never got headache like this before. REVIEW OF SYSTEMS: Positive for headache. Denies any chest pain, shortness of breath, abdominal pain, constipation, diarrhea, dysuria. Positive for cough, no sputum production. Positive body aches. PAST MEDICAL HISTORY: Sinusitis. PAST SURGICAL HISTORY: History of brain tumor resection when she was 9 years old. MEDICATIONS AT HOME: None. ALLERGIES: NO KNOWN DRUG ALLERGIES. SOCIAL HISTORY: She does smoke cigarettes. Denies any illicit drug use. Socially drinks alcohol. FAMILY HISTORY: Reviewed and noncontributory to the case. PHYSICAL EXAMINATION: GENERAL: The patient is a middle-aged female, lying on the bed in no acute distress. VITAL SIGNS: Blood pressure is 120/64, heart rate is 95 per minute, breathing at a rate of 16 per minute, temperature is 98.6 degrees Fahrenheit. This morning, it was 100.7 degrees Fahrenheit. HEENT: Head is normocephalic and atraumatic. LUNGS: Clear. CARDIOPULMONARY: S1 and S2, audible. No murmurs. ABDOMEN: Soft and nontender. Bowel sounds present. NEUROLOGICAL: Mental Status: The patient is awake, alert, oriented to time, place, and person. Speech is fluent. Naming and repetition is normal. Memory and recognition are intact. Cranial Nerve Examination: Pupils are 3 mm bilaterally reactive to light. Visual cervantes are full. Extraocular movements are intact. There is no facial asymmetry. Palate is upgoing bilaterally and tongue is midline. Motor Examination: Tone is normal and power is 5/5 bilaterally in all extremities, reflexes +1 and symmetrical. Plantars downgoing bilaterally. Cerebellar Examination: [id number] shows no dysmetria. The gait is deferred at the moment. Sensory Examination: Intact to soft touch and pin prick. Miscellaneous Exam, positive Brudzinski sign, negative Kernig sign. LABORATORY DATA: Reviewed. WBC 16.3, hemoglobin 10.5, hematocrit of 31.8, and platelets of 377. Sodium is 136, potassium is 3.8, chloride , carbon dioxide 18, BUN of 14, creatinine 0.9, glucose of 182. She had lumbar puncture done. The CSF shows WBC of 6,852, RBC of 12, neutrophils 89%, lymphocytes 1. CSF glucose is 67, CSF protein is 248. She had a CT scan of the head done which shows complete opacification of sphenoid sinus. There is focal bony deficit on the left side of the sphenoid sinus seen on image 12 CD 3. This could potentially be a source for intracranial infection. She had a CT of the cervical spine. No cervical fracture or cervical lytic lesion seen. Postoccipital craniectomy changes noted. She just had MRI of the brain done which I have reviewed, shows posterior fossa mass-like . IMPRESSION: 1. Meningitis, likely bacterial, causing the patient to have headaches. 2. History of brain tumor removal. RECOMMENDATION: 1. The patient was started on ceftriaxone and vancomycin which is to be continued. 2. Consider adding dexamethasone 0.15 mg/kg every 6 hours for 4 days. 3. The patient may have p.r.n. analgesics for headaches, may give Tylenol or nonsteroidal antiinflammatory drugs. 4. Please follow the official report of the MRI of the brain. 5. Please continue supportive care and other treatment. Thank you for the opportunity to participate in the care of this patient. Milton Carvajal MD
[2016-10-05 06:44] LABS: GRAN # 23.37 (1.4-6.5); GRAN % 92.3 % (50.0-68.0); HEMATOCRIT 29.3 % (36.0-48.0); LYMPH # 1.1 (1.2-3.4); LYMPH % 4.3 % (22.0-35.0); MEAN CELL VOLUME 67.8 fl (80.0-105.0); MEAN CORPUSCULAR HGB CONC 32.4 g/dl (31.0-37.0); MEAN PLATELET VOLUME 8.7 fl (7.0-11.0); MONO # 0.9 (0.1-0.6); MONO % 3.4 % (1.0-6.0); RED CELL DISTRIBUTION WIDTH 17.7 % (11.5-14.5)
[2016-10-05 06:45] LABS: ALB/GLOB RATIO 1.1 (1.1-1.8); ALKALINE PHOSPHATASE 57 U/L (38-133); ALT/SGPT 27 U/L (7-56); AST/SGOT 28 U/L (15-39); BILIRUBIN,TOTAL 0.4 mg/dL (0.2-1.3); BLOOD UREA NITROGEN 10 mg/dL (7-21); CALCIUM 8.4 mg/dL (8.4-10.5); CARBON DIOXIDE 21 mmol/L (21-33); CHLORIDE 115 mmol/L (98-107); GFR AFRICAN-AMERICAN > 60; GLUCOSE,RANDOM 127 mg/dL (70-110); POTASSIUM 3.9 mmol/L (3.6-5.0); SODIUM 146 mmol/L (132-148); TOTAL PROTEIN 6.9 g/dL (5.8-8.3)
--- NOTE | 2016-10-05 06:45 | CP.PCM.PN ---
<Rose Kwong - Last Filed: 10/05/16 10:49> Subjective - Date & Time of Evaluation Date of Evaluation: 10/05/16 Time of Evaluation: 06:36 - Subjective Subjective: Medicine Progress Note for Humera Khoury PGY2 Patient seen and examined at bedside. As per nursing, there were no acute overnight events. Patient feels well today. She reports her headaches have improved. She denies CP, SOB, vision changes, photophobia, phonophobia, n/v/d, constipation, fever or chills. Objective - Vital Signs/Intake and Output Vital Signs (last 24 hours): Temp Pulse Resp BP Pulse Ox 98.4 F 63 18 118/51 L 96 10/05/16 04:00 10/05/16 04:51 10/05/16 04:50 10/05/16 04:51 10/05/16 04:51 Intake and Output: 10/04/16 10/05/16 18:59 06:59 Intake Total 1480 Balance 1480 - Medications Medications: Current Medications Acetaminophen (Tylenol 325mg Tab) 650 mg PO Q6H PRN PRN Reason: TEMP>=99.5F Dexamethasone (Decadron Inj) 10 mg IVP Q6H GUERO Stop: 10/08/16 11:31 Last Admin: 10/05/16 05:30 Dose: 10 mg Hydromorphone HCl (Dilaudid) 0.5 mg IVP Q4H PRN PRN Reason: Pain, severe (8-10) Sodium Chloride (Sodium Chloride 0.9%) 1,000 mls @ 100 mls/hr IV .Q10H GUERO Stop: 10/08/16 12:44 Last Admin: 10/04/16 21:44 Dose: 100 mls/hr Ceftriaxone Sodium (Rocephin 2 Gm Ivpb) 2 gm in 100 mls @ 100 mls/hr IVPB BID GUERO PRN Reason: Protocol Last Admin: 10/04/16 14:01 Dose: 100 mls/hr Vancomycin HCl 1.25 gm/ Sodium (Chloride) 250 mls @ 167 mls/hr IVPB Q12 GUERO PRN Reason: Protocol Last Admin: 10/04/16 21:42 Dose: 167 mls/hr Ondansetron HCl (Zofran Inj) 4 mg IVP Q4H PRN PRN Reason: Nausea/Vomiting Pantoprazole Sodium (Protonix Inj) 40 mg IVP DAILY GUERO Last Admin: 10/04/16 10:42 Dose: 40 mg - Labs Labs: PT 12.3 Seconds (9.9-11.8) H 10/04/16 11:00 INR 1.14 (0.93-1.08) H 10/04/16 11:00 APTT 27.3 Seconds (23.7-30.8) 10/04/16 11:00 - Constitutional Appears: No Acute Distress - Head Exam Head Exam: ATRAUMATIC, NORMAL INSPECTION, NORMOCEPHALIC - Eye Exam Eye Exam: EOMI, Normal appearance, PERRL Pupil Exam: NORMAL ACCOMODATION - ENT Exam ENT Exam: Mucous Membranes Moist - Neck Exam Neck Exam: Full ROM - Respiratory Exam Respiratory Exam: Clear to Ausculation Bilateral, NORMAL BREATHING PATTERN. absent: Rales, Rhonchi, Wheezes - Cardiovascular Exam Cardiovascular Exam: REGULAR RHYTHM, +S1, +S2. absent: Gallop, Rubs - GI/Abdominal Exam GI & Abdominal Exam: Soft, Normal Bowel Sounds. absent: Rigid, Tenderness, Mass , Rebound - Extremities Exam Extremities Exam: Normal Inspection. absent: Calf Tenderness, Pedal Edema - Neurological Exam Neurological Exam: Alert, Awake, CN II-XII Intact, Oriented x3 Neuro motor strength exam: Left Upper Extremity: 5, Right Upper Extremity: 5, Left Lower Extremity: 5, Right Lower Extremity: 5 - Psychiatric Exam Psychiatric exam: Normal Affect, Normal Mood - Skin Skin Exam: Dry, Intact, Normal Color, Warm Assessment and Plan - Assessment and Plan (Free Text) Assessment: This is a 36Y F with PMH anemia, chronic sinusitis, brain tumor admitted for bacterial meningitis. Plan: 1. Meningitis (Bacterial v aseptic) - Etiology can be secondary to chronic sinusitis - MRI brain showed opacified sinus, but no acute intracranial abnormality - ID consulted- recs appreciated - Nephro consulted- recs appreciated - Continue Decadron 10q6h x 3 more days (4 total) - Continue Rocephin, Vanc - LP final culture pending- prelim showed no growth - Procal low, Lactic acid 0.9, RPR negative - HIV pending - Airborne precautions - Dilaudid prn pain, Zofran prn nausea 2. 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 Pt will be on isolation for 24hrs total and transferred to floor. Case seen, discussed with attending Humera Kwong PGY2 <Ced Bettencourt - Last Filed: 11/02/16 21:31> Objective - Vital Signs/Intake and Output Vital Signs (last 24 hours): Temp Pulse Resp BP Pulse Ox 98.2 F 91 H 18 117/79 100 10/09/16 08:40 10/09/16 08:40 10/09/16 08:40 10/09/16 08:40 10/09/16 08:40 - Labs Labs: 10/09/16 06:00 10/09/16 06:00 PT 12.3 Seconds (9.9-11.8) H 10/04/16 11:00 INR 1.14 (0.93-1.08) H 10/04/16 11:00 APTT 27.3 Seconds (23.7-30.8) 10/04/16 11:00 Attending/Attestation - Attestation I have personally seen and examined this patient.: Yes I have fully participated in the care of the patient.: Yes I have reviewed all pertinent clinical information, including history, physical exam and plan: Yes
[2016-10-05 07:05] LABS: WHITE BLOOD COUNT 25.3 10^3/ul (4.5-11.0)
[2016-10-05 09:08] LABS: ALB/GLOB RATIO 1.1 (1.1-1.8); BILIRUBIN,DIRECT 0.2 mg/dL (0.0-0.4); BILIRUBIN,TOTAL 0.4 mg/dL (0.2-1.3); MAGNESIUM 2.2 mg/dL (1.7-2.2); PHOSPHOROUS 3.1 mg/dL (2.5-4.5); TOTAL PROTEIN 6.9 g/dL (5.8-8.3)
--- NOTE | 2016-10-05 10:04 | CP.PCM.PN ---
Subjective - Date & Time of Evaluation Date of Evaluation: 10/05/16 Time of Evaluation: 09:20 - Subjective Subjective: Neck stiffness and headache have improved, no fevers overnight, feeling better today. No nausea, no photophobia, no diarrhea. Objective - Vital Signs/Intake and Output Vital Signs (last 24 hours): Temp Pulse Resp BP Pulse Ox 98.4 F 63 18 118/51 L 96 10/05/16 04:00 10/05/16 04:51 10/05/16 04:50 10/05/16 04:51 10/05/16 04:51 Intake and Output: 10/04/16 10/05/16 18:59 06:59 Intake Total 1480 Balance 1480 - Medications Medications: Current Medications Acetaminophen (Tylenol 325mg Tab) 650 mg PO Q6H PRN PRN Reason: TEMP>=99.5F Dexamethasone (Decadron Inj) 10 mg IVP Q6H [facility] Stop: 10/08/16 11:31 Last Admin: 10/05/16 05:30 Dose: 10 mg Hydromorphone HCl (Dilaudid) 0.5 mg IVP Q4H PRN PRN Reason: Pain, severe (8-10) Sodium Chloride (Sodium Chloride 0.9%) 1,000 mls @ 100 mls/hr IV .Q10H [facility] Stop: 10/08/16 12:44 Last Admin: 10/04/16 21:44 Dose: 100 mls/hr Ceftriaxone Sodium (Rocephin 2 Gm Ivpb) 2 gm in 100 mls @ 100 mls/hr IVPB BID [facility] PRN Reason: Protocol Last Admin: 10/04/16 14:01 Dose: 100 mls/hr Vancomycin HCl 1.25 gm/ Sodium (Chloride) 250 mls @ 167 mls/hr IVPB Q12 [facility] PRN Reason: Protocol Last Admin: 10/04/16 21:42 Dose: 167 mls/hr Ondansetron HCl (Zofran Inj) 4 mg IVP Q4H PRN PRN Reason: Nausea/Vomiting Pantoprazole Sodium (Protonix Inj) 40 mg IVP DAILY [facility] Last Admin: 10/04/16 10:42 Dose: 40 mg - Labs Labs: PT 12.3 Seconds (9.9-11.8) H 10/04/16 11:00 INR 1.14 (0.93-1.08) H 10/04/16 11:00 APTT 27.3 Seconds (23.7-30.8) 10/04/16 11:00 - Constitutional Appears: Non-toxic, No Acute Distress - Head Exam Head Exam: NORMAL INSPECTION - ENT Exam ENT Exam: Mucous Membranes Moist - Neck Exam Neck Exam: absent: Meningismus - Respiratory Exam Respiratory Exam: Decreased Breath Sounds. absent: Rales - Cardiovascular Exam Cardiovascular Exam: +S1, +S2 - GI/Abdominal Exam GI & Abdominal Exam: Soft. absent: Tenderness Assessment and Plan - Assessment and Plan (Free Text) Plan: Assessment Sepsis probably due to acute meningitis, suspect bacterial, slowly improving clinically chronic anemia obesity with BMI 33 history of brain tumor as a child S/P craniectomy and removal of tumor neuropathy Plan continue Vancomycin and Rocephin day 2 (has been given Ampicillin in the ED but patient currently has no immunocompromising condition and the patient is less than 50 years - will hold off on this; was also given Acyclovir but the patient' s CSF analysis is more suggestive of bacterial infection and the patient does not currently exhibit unusual speech or behavior and MRI brain does not show temporal lobe affectation - will hold off on this well) Follow up CSF cx and blood cx (negative so far) Recommend droplet isolation for 24 hours (Can d/c later today) and antibiotic prophylaxis for meningococcus for the daughter who lives with the patient will continue to monitor clinically discussed with ICU team
[2016-10-05] MEDS: cefTRIAXone 2 GM IN NS 2 GM/100 ML BAG IVPB SCH ×2 (10:06→19:45)
--- NOTE | 2016-10-05 10:19 | CP.PCM.PN ---
<Jose Mckeon - Last Filed: 10/05/16 10:16> Subjective - Date & Time of Evaluation Date of Evaluation: 10/05/16 Time of Evaluation: 08:00 - Subjective Subjective: ICU Progress Note Patient seen and examined at bedside. Pt is found to be resting comfortably. Pt claims improved headache, no vision changes, and improved neck stiffness/ tenderness. No acute or adverse events overnight as per nursing staff. Pt remains on droplet precautions. Pt denied fever, chills, sob, chest pains, abdominal pains, n/v/d/c or urinary symptoms. Objective - Vital Signs/Intake and Output Vital Signs (last 24 hours): Temp Pulse Resp BP Pulse Ox 98.4 F 75 15 125/62 97 10/05/16 04:00 10/05/16 06:40 10/05/16 06:40 10/05/16 05:51 10/05/16 06:40 Intake and Output: 10/05/16 10/05/16 06:59 18:59 Intake Total 1450 Output Total 850 Balance 600 - Medications Medications: Current Medications Acetaminophen (Tylenol 325mg Tab) 650 mg PO Q6H PRN PRN Reason: TEMP>=99.5F Dexamethasone (Decadron Inj) 10 mg IVP Q6H [facility] Stop: 10/08/16 11:31 Last Admin: 10/05/16 05:30 Dose: 10 mg Hydromorphone HCl (Dilaudid) 0.5 mg IVP Q4H PRN PRN Reason: Pain, severe (8-10) Sodium Chloride (Sodium Chloride 0.9%) 1,000 mls @ 100 mls/hr IV .Q10H [facility] Stop: 10/08/16 12:44 Last Admin: 10/04/16 21:44 Dose: 100 mls/hr Ceftriaxone Sodium (Rocephin 2 Gm Ivpb) 2 gm in 100 mls @ 100 mls/hr IVPB BID [facility] PRN Reason: Protocol Last Admin: 10/05/16 10:06 Dose: 100 mls/hr Vancomycin HCl 1.25 gm/ Sodium (Chloride) 250 mls @ 167 mls/hr IVPB Q12 [facility] PRN Reason: Protocol Last Admin: 10/05/16 10:06 Dose: 167 mls/hr Iron Sucrose 200 mg/ Sodium (Chloride) 110 mls @ 110 mls/hr IVPB ONCE [facility] Stop: 10/07/16 08:14 Last Admin: 10/05/16 10:05 Dose: 110 mls/hr Ondansetron HCl (Zofran Inj) 4 mg IVP Q4H PRN PRN Reason: Nausea/Vomiting Pantoprazole Sodium (Protonix Inj) 40 mg IVP DAILY [facility] Last Admin: 10/05/16 10:06 Dose: 40 mg - Labs Labs: 10/05/16 06:00 10/05/16 06:00 PT 12.3 Seconds (9.9-11.8) H 10/04/16 11:00 INR 1.14 (0.93-1.08) H 10/04/16 11:00 APTT 27.3 Seconds (23.7-30.8) 10/04/16 11:00 - Constitutional Appears: No Acute Distress - Head Exam Head Exam: ATRAUMATIC, NORMAL INSPECTION, NORMOCEPHALIC - Eye Exam Eye Exam: EOMI, Normal appearance, PERRL Pupil Exam: NORMAL ACCOMODATION, PERRL - ENT Exam ENT Exam: Mucous Membranes Moist, Normal Exam - Neck Exam Neck Exam: Full ROM, Normal Inspection. absent: Lymphadenopathy - Respiratory Exam Respiratory Exam: Clear to Ausculation Bilateral, NORMAL BREATHING PATTERN - Cardiovascular Exam Cardiovascular Exam: REGULAR RHYTHM, +S1, +S2. absent: Murmur - GI/Abdominal Exam GI & Abdominal Exam: Soft, Normal Bowel Sounds. absent: Tenderness - Extremities Exam Extremities Exam: Full ROM, Normal Capillary Refill, Normal Inspection. absent : Joint Swelling, Pedal Edema - Neurological Exam Neurological Exam: Alert, Awake, CN II-XII Intact, Normal Gait, Oriented x3 - Psychiatric Exam Psychiatric exam: Normal Affect, Normal Mood - Skin Skin Exam: Dry, Intact, Normal Color, Warm Assessment and Plan - Assessment and Plan (Free Text) Assessment: 36 F with chronic sinusitis and hx of brain tumor s/p resection admitted to ICU for suspected bacterial meningitis. Neuro: - AAOx3, mentating well, moving all extremities, no focal deficits - headache/photophobia/neck stiffness improved - Maintain normothermia - dilaudid pain control - MRI brain showed opacified sinus, but no acute intracranial abnormality - Suspected Bacterial meningitis: Empiric abx w/ vancomycin and Zosyn and given Decadron, Droplet precautions CVS: - HD stable - maintain MAP > 65 - NS@ 100ml/hr Pulm: - Stable - 02 sat at 98% on RA - CXR did not demonstrate any acute cardio-pulm pathology - maintain SaO2 > 92% and paO2 > 60 - Droplet precautions GI: - Stable, HHD - Protonix IVP for GI ppx Renal: - Renal function stable - Strict I's & O's - Monitor and replete electrolytes as needed - Maintain euvolemia Endo: - Maintain euglycemia - BG 140-180 Heme: - h/h stable no signs of bleeding - Microcytic anemia likely 2/2 menorrhagia 2/2 fibroids - iron deficiency anemia, IV Venofer as per primary - Will continue to monitor ID: - Suspected bacterial meningitis - increasing leukocytosis, afebrile - Continue Decadron 10q6h x 3 more days (4 total) - Continue Rocephin, Vanc as per ID - LP final culture pending- prelim showed no growth - Procal low, Lactic acid 0.9, RPR negative - HIV pending - Negative CSF cx and blood cx - As per ID, Dr. Butler, recommend droplet isolation for 24 hours (d/c later today) - antibiotic prophylaxis for meningococcus for the daughter who lives with the patient DVT/GI ppx reviewed Seen Reviewed and discussed with attending <Alena YADAV,Katelyn H - Last Filed: 10/05/16 13:43> Objective - Vital Signs/Intake and Output Vital Signs (last 24 hours): Temp Pulse Resp BP Pulse Ox 98.4 F 75 15 125/62 97 10/05/16 04:00 10/05/16 06:40 10/05/16 06:40 10/05/16 05:51 10/05/16 06:40 Intake and Output: 10/05/16 10/05/16 06:59 18:59 Intake Total 1450 Output Total 850 Balance 600 - Medications Medications: Current Medications Acetaminophen (Tylenol 325mg Tab) 650 mg PO Q6H PRN PRN Reason: TEMP>=99.5F Dexamethasone (Decadron Inj) 10 mg IVP Q6H [facility] Stop: 10/08/16 11:31 Last Admin: 10/05/16 12:09 Dose: 10 mg Hydromorphone HCl (Dilaudid) 0.5 mg IVP Q4H PRN PRN Reason: Pain, severe (8-10) Sodium Chloride (Sodium Chloride 0.9%) 1,000 mls @ 100 mls/hr IV .Q10H [facility] Stop: 10/08/16 12:44 Last Admin: 10/04/16 21:44 Dose: 100 mls/hr Ceftriaxone Sodium (Rocephin 2 Gm Ivpb) 2 gm in 100 mls @ 100 mls/hr IVPB BID [facility] PRN Reason: Protocol Last Admin: 10/05/16 10:06 Dose: 100 mls/hr Vancomycin HCl 1.25 gm/ Sodium (Chloride) 250 mls @ 167 mls/hr IVPB Q12 [facility] PRN Reason: Protocol Last Admin: 10/05/16 10:06 Dose: 167 mls/hr Iron Sucrose 200 mg/ Sodium (Chloride) 110 mls @ 110 mls/hr IVPB ONCE [facility] Stop: 10/07/16 08:14 Last Admin: 10/05/16 10:05 Dose: 110 mls/hr Ondansetron HCl (Zofran Inj) 4 mg IVP Q4H PRN PRN Reason: Nausea/Vomiting Pantoprazole Sodium (Protonix Inj) 40 mg IVP DAILY [facility] Last Admin: 10/05/16 10:06 Dose: 40 mg - Labs Labs: 10/05/16 06:00 10/05/16 06:00 PT 12.3 Seconds (9.9-11.8) H 10/04/16 11:00 INR 1.14 (0.93-1.08) H 10/04/16 11:00 APTT 27.3 Seconds (23.7-30.8) 10/04/16 11:00 Attending/Attestation - Attestation I have personally seen and examined this patient.: Yes I have fully participated in the care of the patient.: Yes I have reviewed all pertinent clinical information, including history, physical exam and plan: Yes Notes (Text): 10/05/16 13:41 36 y/o F w/ Meningitis Likely bacterial source ,likely from Sinusitis . On vancomycin and Rocephin . CX pending. MRI neg for any new findings Clinically improved, headache and stiffness improved. pt/ot cc time35 min
--- NOTE | 2016-10-05 12:03 | PN ---
NEUROLOGY PROGRESS NOTE DATE: 10/05/2016 SUBJECTIVE: The patient is sitting on the bed, in no acute distress. Denies having any further headaches. She was having headaches until early this morning, but now she is feeling a lot better. PHYSICAL EXAMINATION: VITAL SIGNS: Her blood pressure is 125/62, heart rate is 84 per minute, breathing at the rate of 16 per minute. She is afebrile. HEENT: Head is normocephalic and atraumatic. NECK: Supple. There are no carotid bruits. LUNGS: Clear. CARDIOPULMONARY: S1 and S2, audible. No murmurs. ABDOMEN: Soft and nontender. Bowel sounds are present. NEUROLOGICAL: Mental Status: The patient is awake, alert, oriented to time, place, and person. Speech is fluent. Naming and repetition is normal. Memory and recognition are intact. Cranial Nerve Examination: Pupils are 4 mm bilaterally reactive to light. Visual cervantes are full. Extraocular movements are intact. There is no facial asymmetry. Palate is upgoing bilaterally and tongue is midline. Motor Examination: Tone is normal and power is 5/5 bilaterally in all extremities, reflexes +1 and symmetrical. Plantars downgoing bilaterally. LABORATORY DATA: Labs reviewed. MRI of the brain shows opacified sphenoid sinus. No evidence of intracranial infection. IMPRESSION: 1. Meningitis likely bacterial. 2. Headache secondary to above. 3. History of brain tumor removal. RECOMMENDATIONS: 1. The patient to be continued on intravenous antibiotics. 2. The patient also to be continued on Decadron for four days. 3. The patient's headaches has significantly improved. She may have Tylenol., nonsteroidal antiinflammatory drugs as needed. 4. The patient seems to be improving. 5. Please continue other treatments and supportive care. She may be transferred out of ICU from a neurologic standpoint. Thank you for the opportunity to participate in the care of this patient. Milton Carvajal MD
--- NOTE | 2016-10-05 16:26 | PN ---
DATE: 10/05/2016 SUBJECTIVE: The patient is seen sitting up in the bed in ICU bed 5. Overnight nurses' notes were reviewed. The patient's family was seen by the infection control. The patient's daughter and sister was advised to contact PMD for prophylaxis treatment. The patient denies any headache, denies photophobia, denies blurred vision, and denies fever. PHYSICAL EXAMINATION VITAL SIGNS: T-max in the last 24 hours 102.7, down to 99.4 to 98.4, pulse 75 to 78, blood pressure 125/62 to 180/51, 160/50, respirations 18 to 15, and O2 saturation of 97% to 99%. HEENT: Head examination is normocephalic and atraumatic. HEENT examination shows no neck rigidity. Positive surgical scar over the neck area. CHEST: Symmetrical. LUNGS: Shows no rales, crackles or wheezing. CARDIOVASCULAR: S1 and S2. Regular rhythm. ABDOMEN: Soft and positive bowel sounds. GENITALIA: Female. RECTAL: Examination is deferred. EXTREMITIES: Shows no pitting edema. No calf tenderness. No Homans' sign. NEUROLOGIC: The patient is alert, awake, and oriented x3. Cranial nerves II through XII were limited. GAIT: Could not be tested. MUSCULOSKELETAL: Examination shows a body mass index of 33. DIAGNOSTIC DATA: WBC of 25.3, hemoglobin and hematocrit are 9.5 and 29.3, MCV of 68, and platelets of and granulocytes 93%. ESR is 42, retic count is 0.8, and sickle cell is positive. Sodium is 146, potassium is 3.9, chloride is 115, CO2 is 21, anion gap is 14, BUN is 10, and creatinine is 0.8. GFR is greater than 60 and glucose is 127. Lactic acid is 0.9, phosphorus is 3.1, and magnesium is 2.2. Iron is 15, iron saturation is 4, ferritin is 38, and procalcitonin is 0.17. Bacteria antigen source negative for the CSF. RPR is nonreactive. Microbiology, CSF Gram stain results pending. Blood culture is negative. MRI of the brain results are noted and explained to the patient. The patient was seen by infectious disease and neurology, their recommendations noted. IMPRESSION AND PLAN: 1. Sepsis. 2. Acute suspected bacterial meningitis. 3. History of sickle cell trait. 4. Iron deficiency anemia. 5. Obesity with elevated body mass index. 6. Status post craniectomy. 7. High-grade fever. 8. Leukocytosis with granulocytosis and bandemia. 9. Bandemia. 10. Elevated erythrocyte sedimentation rate. 11. Iron deficiency anemia. 12. Proteinuria. 13. Pyuria. 14. Right cerebellar hemisphere, craniectomy and craniotomy. 15. Opacified sphenoid sinus etiology undetermined. 16. Iron deficiency microcytic anemia. 17. History of menorrhagia secondary to fibroid. 1. Most likely bacterial meningitis. 2. High-grade fever. 3. Tachycardia. 4. Hypotension. 5. Systemic inflammatory response syndrome. 6. Leukocytosis. 7. Microcytic anemia. 8. Bandemia. 9. Lactic acidosis. 10. Hyperglycemia. 11. Proteinuria. 12. Bacteriuria. 13. Post occipital craniotomy and craniectomy with C5, C6, C7 cervical spondylosis. 14. Cervical spine foramen narrowing and degenerative disc disease. 15. Bilateral hyperplastic cervical lymphadenopathy. 16. Right cerebellar suboccipital craniotomy and craniectomy. 17. Sphenoid sinus complete opacification with the left sphenoid sinus bony defect, possible intracranial infection. PLAN: At this time is to repeat , repeat labs ordered for the morning, HIV, blood CSF, and urine culture is pending. Consultation, neurology and infectious disease. CURRENT MEDICATIONS: 1. Decadron 10 mg IV q. 6 hours. for 4 days. 2. Dilaudid 0.5 IV q. 4 hours. p.r.n. 3. Venofer 200 mg daily times 3. 4. Protonix 40 mg daily. 5. Rocephin 2 g IV q. 12 hours. 6. . 7. Vancomycin 1.2 g IV q. 12 hours. 8. Zofran 4 mg IV q. 4 hours. DISPOSITION: At present, the patient will be transferred out of ICU, would be kept in isolation as per infectious disease recommendation. The patient update about her condition, diagnoses, treatment plan, and management plan. The patient also advised outpatient [facility]ER followup. Dictated and electronically signed, not read. Ced Bettencourt MD [facility] # [id number] MIRIAM
[2016-10-05] MEDS: Sodium Chloride 0.9% 1,000 ML IV SCH (19:46)
[2016-10-06 01:48] LABS: HEMOGLOBIN F <1.0 Percent (<2.0)
--- NOTE | 2016-10-06 07:03 | CP.PCM.PN ---
<Rose Kwong - Last Filed: 10/06/16 10:49> Subjective - Date & Time of Evaluation Date of Evaluation: 10/06/16 Time of Evaluation: 07:03 - Subjective Subjective: Medicine Progress Note for Humera Khoury PGY2 Patient seen and examined at bedside. As per nursing, there were no acute overnight events. She reports her headaches come when she coughs. She denies CP , SOB, vision changes, photophobia, phonophobia, n/v/d, constipation, fever or chills. Objective - Vital Signs/Intake and Output Vital Signs (last 24 hours): Temp Pulse Resp BP Pulse Ox 97.5 F L 59 L 20 118/62 98 10/06/16 01:26 10/06/16 01:26 10/06/16 01:26 10/06/16 01:26 10/06/16 01:26 Intake and Output: 10/06/16 10/06/16 06:59 18:59 Intake Total 980 Output Total 3 Balance 977 - Medications Medications: Current Medications Acetaminophen (Tylenol 325mg Tab) 650 mg PO Q6H PRN PRN Reason: TEMP>=99.5F Dexamethasone (Decadron Inj) 10 mg IVP Q6H [facility] Stop: 10/08/16 11:31 Last Admin: 10/05/16 23:45 Dose: 10 mg Hydromorphone HCl (Dilaudid) 0.5 mg IVP Q4H PRN PRN Reason: Pain, severe (8-10) Sodium Chloride (Sodium Chloride 0.9%) 1,000 mls @ 100 mls/hr IV .Q10H [facility] Stop: 10/08/16 12:44 Last Admin: 10/05/16 19:46 Dose: 100 mls/hr Ceftriaxone Sodium (Rocephin 2 Gm Ivpb) 2 gm in 100 mls @ 100 mls/hr IVPB BID [facility] PRN Reason: Protocol Last Admin: 10/05/16 19:45 Dose: 100 mls/hr Vancomycin HCl 1.25 gm/ Sodium (Chloride) 250 mls @ 167 mls/hr IVPB Q12 [facility] PRN Reason: Protocol Last Admin: 10/05/16 22:06 Dose: 167 mls/hr Iron Sucrose 200 mg/ Sodium (Chloride) 110 mls @ 110 mls/hr IVPB ONCE [facility] Stop: 10/07/16 08:14 Last Admin: 10/05/16 10:05 Dose: 110 mls/hr Ondansetron HCl (Zofran Inj) 4 mg IVP Q4H PRN PRN Reason: Nausea/Vomiting Pantoprazole Sodium (Protonix Inj) 40 mg IVP DAILY [facility] Last Admin: 10/05/16 10:06 Dose: 40 mg - Labs Labs: 10/05/16 06:00 10/05/16 06:00 PT 12.3 Seconds (9.9-11.8) H 10/04/16 11:00 INR 1.14 (0.93-1.08) H 10/04/16 11:00 APTT 27.3 Seconds (23.7-30.8) 10/04/16 11:00 - Constitutional Appears: No Acute Distress - Head Exam Head Exam: ATRAUMATIC, NORMAL INSPECTION, NORMOCEPHALIC - Eye Exam Eye Exam: EOMI, Normal appearance, PERRL Pupil Exam: NORMAL ACCOMODATION, PERRL - ENT Exam ENT Exam: Mucous Membranes Moist - Neck Exam Neck Exam: Full ROM - Respiratory Exam Respiratory Exam: Clear to Ausculation Bilateral, NORMAL BREATHING PATTERN. absent: Rales, Rhonchi, Wheezes - Cardiovascular Exam Cardiovascular Exam: REGULAR RHYTHM, +S1, +S2. absent: Gallop, Rubs, Murmur - GI/Abdominal Exam GI & Abdominal Exam: Soft, Normal Bowel Sounds. absent: Rigid, Tenderness, Mass , Rebound - Extremities Exam Extremities Exam: Normal Inspection. absent: Calf Tenderness, Pedal Edema - Neurological Exam Neurological Exam: Alert, Awake, CN II-XII Intact, Normal Gait, Oriented x3 Neuro motor strength exam: Left Upper Extremity: 5, Right Upper Extremity: 5, Left Lower Extremity: 5, Right Lower Extremity: 5 - Psychiatric Exam Psychiatric exam: Normal Affect, Normal Mood - Skin Skin Exam: Dry, Intact, Normal Color, Warm Assessment and Plan - Assessment and Plan (Free Text) Assessment: This is a 36Y F with PMH anemia, sickle cell trait, chronic sinusitis, brain tumor admitted for meningitis. Plan: 1. Meningitis (Bacterial v aseptic) - Etiology can be secondary to chronic sinusitis - Will check MRI spine to r/o abscess - CT cervical spine did not show abscess - ID consulted- recs appreciated - Nephro consulted- recs appreciated - Continue Decadron 10q6h x 2 more days (4 total) - Continue Rocephin, Vanc - LP final culture pending- prelim showed no growth - HIV negative, Procal low, Lactic acid 0.9, RPR negative - Dilaudid prn pain, Zofran prn nausea - D/C airborne precautions 2. Anemia- Microcytic - Pt has history of anemia secondary to menorrhagia - pt said known hx of fibroids as per her [facility] doc - sickle cell screen positive for sickle cell trait- pt has history of it - iron studies showed iron deficiency anemia - Venofer x 2 more days - Will continue to monitor GI ppx: Protonix DVT ppx: SCDs Dispo: Isolation d/c. As per patient, family members received ppx. She will be d /c home and follow up with Dr. Bettencourt once medically stable. Case seen, discussed with attending Humera Kwong PGY2 <Ced Bettencourt U - Last Filed: 11/02/16 21:32> Objective - Vital Signs/Intake and Output Vital Signs (last 24 hours): Temp Pulse Resp BP Pulse Ox 98.2 F 91 H 18 117/79 100 10/09/16 08:40 10/09/16 08:40 10/09/16 08:40 10/09/16 08:40 10/09/16 08:40 - Labs Labs: 10/09/16 06:00 10/09/16 06:00 PT 12.3 Seconds (9.9-11.8) H 10/04/16 11:00 INR 1.14 (0.93-1.08) H 10/04/16 11:00 APTT 27.3 Seconds (23.7-30.8) 10/04/16 11:00 Attending/Attestation - Attestation I have personally seen and examined this patient.: Yes I have fully participated in the care of the patient.: Yes I have reviewed all pertinent clinical information, including history, physical exam and plan: Yes
[2016-10-06 07:36] LABS: BASO # 0.01 K/mm3 (0.0-2.0); GRAN # 22.66 (1.4-6.5); GRAN % 92.1 % (50.0-68.0); HEMATOCRIT 29.2 % (36.0-48.0); LYMPH % 4.2 % (22.0-35.0); MEAN CELL VOLUME 67.3 fl (80.0-105.0); MEAN CORPUSCULAR HEMOGLOBIN 21.7 pg (25.0-35.0); MEAN CORPUSCULAR HGB CONC 32.2 g/dl (31.0-37.0); MEAN PLATELET VOLUME 8.6 fl (7.0-11.0); MONO # 0.9 (0.1-0.6); MONO % 3.7 % (1.0-6.0); RED CELL DISTRIBUTION WIDTH 17.5 % (11.5-14.5); WHITE BLOOD COUNT 24.6 10^3/ul (4.5-11.0)
[2016-10-06 07:51] LABS: ALKALINE PHOSPHATASE 56 U/L (38-133); ALT/SGPT 29 U/L (7-56); AST/SGOT 29 U/L (15-39); BILIRUBIN,DIRECT 0.2 mg/dL (0.0-0.4); BILIRUBIN,TOTAL 0.4 mg/dL (0.2-1.3); BLOOD UREA NITROGEN 14 mg/dL (7-21); CALCIUM 8.7 mg/dL (8.4-10.5); CARBON DIOXIDE 22 mmol/L (21-33); CHLORIDE 114 mmol/L (95-110); GFR AFRICAN-AMERICAN > 60; GLUCOSE,RANDOM 134 mg/dL (70-110); MAGNESIUM 2.2 mg/dL (1.7-2.2); PHOSPHOROUS 3.2 mg/dL (2.5-4.5); POTASSIUM 3.7 mmol/L (3.6-5.0); SODIUM 145 mmol/L (132-148)
[2016-10-06] MEDS: cefTRIAXone 2 GM IN NS 2 GM/100 ML BAG IVPB SCH ×2 (10:00→22:03)
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
[2016-10-06] MEDS ORDERED: Gadodiamide 287 MG/ML VIAL (15ML) IV ONE (18:11)
--- NOTE | 2016-10-06 20:49 | PN ---
DATE: 10/06/2016 LOCATION: The patient is seen and examined in room 574, bed 2. SUBJECTIVE: The patient is seen lying in the bed, watching TV and on the phone. The patient's symptoms of headache, nausea has resolved. Fever has resolved. The patient states that she is feeling significantly better. PHYSICAL EXAMINATION: VITAL SIGNS: T-max, the patient is afebrile; heart rate is 74, 82 and 86; averaging systolic blood pressure around 110 and 120s and diastolic blood pressure in 70s and 80s; respirations 18 to 22 and O2 sat is 95% to 98%. HEENT: The patient's head examination shows no abnormalities. Previous history of right-sided craniectomy noted. NECK: No neck rigidity noted. CHEST: Symmetrical. LUNGS: Show no rales, crackles or wheezing. CARDIOVASCULAR: S1 and S2, regular rhythm. BACK: No spine tenderness noted. ABDOMEN: Soft. Positive bowel sounds. GENITALIA: Female. RECTAL: Deferred. EXTREMITIES: Show no pitting edema. No calf tenderness. No Homans' sign. NEUROLOGIC: The patient is alert, awake and oriented x3. Gait examination is independent. Cranial nerves II-XII grossly normal. VASCULAR: Palpable pulses. PSYCHIATRIC: Not applicable. DIAGNOSTIC DATA: Reviewed and discussed with the residents. The patient's labs are as per the resident's notes of today. The patient's management discussed with infectious disease. The patient is off isolation as per the infectious disease recommendation. Infectious disease is recommending MRI of the spine to rule out other sources of the patient's symptomatology. IMPRESSION: 1. Possible and most likely bacterial meningitis. 2. Status post spinal tap and lumbar puncture. 3. Microcytic anemia and iron deficiency anemia. 4. Obesity with elevated body mass index. 5. History of right-sided craniectomy. 6. Complete opacification of the sphenoid sinus with possible sphenoid sinusitis. 7. History of anemia. 8. Sickle cell trait. 9. Status post fever. 1. Sepsis. 2. Acute suspected bacterial meningitis. 3. History of sickle cell trait. 4. Iron deficiency anemia. 5. Obesity with elevated body mass index. 6. Status post craniectomy. 7. High-grade fever. 8. Leukocytosis with granulocytosis and bandemia. 9. Bandemia. 10. Elevated erythrocyte sedimentation rate. 11. Iron deficiency anemia. 12. Proteinuria. 13. Pyuria. 14. Right cerebellar hemisphere, craniectomy and craniotomy. 15. Opacified sphenoid sinus etiology undetermined. 16. Iron deficiency microcytic anemia. 17. History of menorrhagia secondary to fibroid. 1. Sepsis. 2. Acute suspected bacterial meningitis. 3. History of sickle cell trait. 4. Iron deficiency anemia. 5. Obesity with elevated body mass index. 6. Status post craniectomy. 7. High-grade fever. 8. Leukocytosis with granulocytosis and bandemia. 9. Bandemia. 10. Elevated erythrocyte sedimentation rate. 11. Iron deficiency anemia. 12. Proteinuria. 13. Pyuria. 14. Right cerebellar hemisphere, craniectomy and craniotomy. 15. Opacified sphenoid sinus etiology undetermined. 16. Iron deficiency microcytic anemia. 17. History of menorrhagia secondary to fibroid. 1. Most likely bacterial meningitis. 2. High-grade fever. 3. Tachycardia. 4. Hypotension. 5. Systemic inflammatory response syndrome. 6. Leukocytosis. 7. Microcytic anemia. 8. Bandemia. 9. Lactic acidosis. 10. Hyperglycemia. 11. Proteinuria. 12. Bacteriuria. 13. Post occipital craniotomy and craniectomy with C5, C6, C7 cervical spondylosis. 14. Cervical spine foramen narrowing and degenerative disc disease. 15. Bilateral hyperplastic cervical lymphadenopathy. 16. Right cerebellar suboccipital craniotomy and craniectomy. 17. Sphenoid sinus complete opacification with the left sphenoid sinus bony defect, possible intracranial infection. PLAN: At this time, the patient will be continued on IV antibiotic as per infectious disease recommendation. The patient's MRI of the cervical, thoracic and lumbar spine ordered as per infectious disease recommendation. The patient has been advised and updated about her condition, diagnosis, treatment plan, management plan and recommendation from all the physicians involved in the care of the patient. The patient is presently also on Decadron 10 mg IV q. 6 as per neurology recommendation for total of 4 days.. At present, the patient is to be continued on the therapeutic intervention and medications as per the MAR up-to-date. The patient has been advised out of bed ad aden in the room in the floor. The patient will be followed by infectious disease and neurology. The patient's further management as per infectious disease and neurology recommendation. The patient will be considered for discharge once cleared by infectious disease and neurology, which has been updated to the patient. Dictated and electronically signed, not read. Ced Bettencourt MD [facility] # [id number] MIRIAM
[2016-10-07 06:56] LABS: ALB/GLOB RATIO 1.1 (1.1-1.8); ALKALINE PHOSPHATASE 49 U/L (38-133); ALT/SGPT 29 U/L (7-56); AST/SGOT 26 U/L (15-39); BILIRUBIN,DIRECT 0.1 mg/dL (0.0-0.4); BILIRUBIN,TOTAL 0.2 mg/dL (0.2-1.3); BLOOD UREA NITROGEN 14 mg/dL (7-21); CALCIUM 8.4 mg/dL (8.4-10.5); CARBON DIOXIDE 24 mmol/L (21-33); CHLORIDE 112 mmol/L (98-107); GFR AFRICAN-AMERICAN > 60; GLUCOSE,RANDOM 130 mg/dL (70-110); MAGNESIUM 2.2 mg/dL (1.7-2.2); PHOSPHOROUS 3.7 mg/dL (2.5-4.5); POTASSIUM 4.1 mmol/L (3.6-5.0); SODIUM 145 mmol/L (132-148); TOTAL PROTEIN 6.3 g/dL (5.8-8.3)
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
--- NOTE | 2016-10-07 07:29 | MRI ---
PROCEDURE: MR CERVICAL SPINE WITH AND WITHOUT CONTRAST HISTORY: MENINGITIS/?/SPINAL ABSCESS COMPARISON: Unenhanced cervical spine CT examination 10/04/2016 TECHNIQUE: Multiecho multiplanar sequences were performed through the cervical spine with and without the use of intravenous contrast. FINDINGS: History of the cervical curvature without fracture or spondylolisthesis identified. Marrow signal intensity appears diffusely unremarkable throughout the vertebral bodies. The cervical spinal cord appears normal course caliber contour as well as intrinsic signal with motion artifact distorting the examination, particularly the mid cervical spine. There is diffuse disc desiccation identified. Craniocervical junction appears unremarkable though sphenoid sinus disease is apparent, left greater than right sides incidentally. No suspicious intrathecal or epidural enhancement is appreciated throughout prevertebral paraspinal soft tissues appear diffusely unremarkable. Craniocervical junction is intact. C2-3: No disc herniation or central canal stenosis. Mild right neural foraminal narrowing is identified on a degenerative basis due to uncovertebral and facet joint arthropathy. C3-4: No disc herniation or central canal or neural foraminal stenosis identified. C4-5: No disc herniation, significant central canal or left neural foraminal stenosis is identified. Mild degenerative right neural foraminal stenosis appreciated due to uncovertebral and facet arthropathy. The ventral thecal sac is inverted by minimal disc bulging. C5-C6: No disc herniation is appreciated however a disc osteophyte complex appears circumferential resulting in a borderline central canal stenosis. Mild right degenerative foraminal stenosis caused by uncovertebral and facet elite joint arthropathy. Left neural foramina appears widely patent. C6-C7: No disc herniation, spinal canal stenosis or neuroforaminal narrowing. C7-T1: No disc herniation, spinal canal stenosis or neural foraminal narrowing. OTHER FINDINGS: Incidental postoperative changes noted at the inferior visualized right posterior fossa. IMPRESSION: 1. No abnormal intrathecal or epidural enhancement is identified throughout the cervical spine. 2. Borderline degenerative central canal stenosis at C5-6 due to disc osteophyte complex. No additional significant central canal stenosis. 3. Occasional limited neural foraminal stenoses on a degenerative basis as per above. Concur with V rad preliminary interpretation 05/31/2016.
--- NOTE | 2016-10-07 07:36 | MRI ---
PROCEDURE: MR THORACIC SPINE WITH AND WITHOUT CONTRAST HISTORY: MENINGITIS/?/SPINAL ABSCESS COMPARISON: None available. TECHNIQUE: Multiecho multiplanar sequences were performed through the thoracic spine with and without the use of intravenous contrast. FINDINGS: ALIGNMENT: Normal thoracic spinal alignment. Normal thoracic kyphosis. VERTEBRA: Vertebral body heights are preserved. MARROW: There is a tiny area of long TR hyper intensity which does not appear to enhance in the T9 vertebral body best seen on the STIR and T2 sequences appearing to be iso to hyperintense on T1. This probably represents a small benign hemangioma or other benign process. No suspicious enhancement is related. PARASPINAL SOFT TISSUES: Unremarkable. CORD: Unremarkable thoracic cord. No volume loss, signal abnormality or syrinx. DISCS: No disc herniation, spinal canal stenosis, or neuroforaminal narrowing. ENHANCEMENT: No abnormal enhancement. OTHER FINDINGS: None. IMPRESSION: 1. No abnormal intrathecal or epidural enhancement. 2. Thoracic cord appears normal in course caliber and contour. 3. No disc herniation or stenosis. Concur with V rad preliminary report 10/06/2016.
[2016-10-07 07:42] LABS: EOS % 0.1 % (1.5-5.0); GRAN # 17.08 (1.4-6.5); GRAN % 91.3 % (50.0-68.0); HEMATOCRIT 27.9 % (36.0-48.0); LYMPH # 0.9 (1.2-3.4); MEAN CELL VOLUME 67.9 fl (80.0-105.0); MEAN CORPUSCULAR HEMOGLOBIN 21.9 pg (25.0-35.0); MEAN CORPUSCULAR HGB CONC 32.3 g/dl (31.0-37.0); MEAN PLATELET VOLUME 9.2 fl (7.0-11.0); MONO # 0.7 (0.1-0.6); MONO % 3.6 % (1.0-6.0); PLATELET COUNT 342 10^3/uL (120.0-450.0); RED CELL DISTRIBUTION WIDTH 17.6 % (11.5-14.5); WHITE BLOOD COUNT 18.7 10^3/ul (4.5-11.0)
--- NOTE | 2016-10-07 07:58 | MRI ---
PROCEDURE: MR LUMBAR SPINE WITH AND WITHOUT CONTRAST HISTORY: MENINGITIS/?/SPINAL ABSCESS COMPARISON: None available. TECHNIQUE: Multiecho multiplanar sequences were performed through the lumbar spine with and without the use of intravenous contrast. FINDINGS: Normal lumbar lordosis. No fracture or spondylolisthesis identified. Moderate disc desiccation seen at L3-4, severe L4-5 and with otherwise normal hydration in the intervertebral discs otherwise. No suspicious marrow signal changes are identified. Moderate disc height loss is identified at L4-5, mild at L3-4. Conus medullaris appears normal in intrinsic signal terminating at the L1-L2 superior endplate with prevertebral paraspinal soft tissues appear diffusely unremarkable. Instill note is made of diminished T2 nodular signal changes at the left side of the lower uterine segment suggestive of probable small myoma. No definite abnormal intrathecal or epidural enhancement is identified. Note, pre and postcontrast sagittal T1 weighted sequences were included in this exam however due to technical failure precontrast T1 axial imaging is not submitted. Post gadolinium enhanced T1 axial imaging is included T12-L1: No disc herniation, spinal canal stenosis or neural foraminal narrowing. L1-2: No disc herniation, spinal canal stenosis or neural foraminal narrowing. L2-3: No disc herniation, spinal canal stenosis or neural foraminal narrowing. Mild bilateral facet joint degenerative arthropathy is appreciated. Limited disc bulging is appreciated slightly flattening the ventral thecal sac without stenosis. L3-4: No disc herniation or neural foraminal narrowing. Diffuse disc bulging is appreciated only slightly asymmetric greater the right than left with borderline central stenosis resulting, particularly at the lateral recesses symmetrically. Mild bilateral facet joint degenerative arthropathy is appreciated L4-5: No disc herniation is appreciated however a disc osteophyte complex identified mild with facet joint arthropathy and epidural lipomatosis to cause a mild to moderate central canal stenosis. Borderline bilateral neural foraminal stenosis also appreciated symmetrically. L5-S1: An additional disc osteophyte complex is appreciated with facet arthropathy results in bilateral lateral recess stenosis here, also in part due to epidural lipomatosis. Borderline bilateral neural foraminal stenosis is noted symmetrically. No disc herniation identified. OTHER FINDINGS: None. IMPRESSION: 1. No abnormal intrathecal or epidural enhancement identified. 2. [id number] degenerative central canal stenosis noted L4-5 with borderline degenerative central canal stenosis noted at L3-4. Lateral recesses are moderately stenosed at L5-S1 on a degenerative basis as well. No definite disc herniation identified.
[2016-10-07 08:19] LABS: ANISOCYTOSIS 1+; HYPOCHROMIA 1+; NEUTROPHIL 92 % (50.0-70.0); PLATELET ESTIMATE NORMAL (NORMAL); POLYCHROMASIA SLIGHT
[2016-10-07] MEDS: cefTRIAXone 2 GM IN NS 2 GM/100 ML BAG IVPB SCH ×2 (09:54→21:16)
[2016-10-07] MEDS: Pantoprazole 40 mg EC Tab PO SCH (09:56)
[2016-10-07 18:26] VITALS: RESP 18; O2SAT 100
[2016-10-08] MEDS: Sodium Chloride 0.45% 1,000 ML IV SCH ×3 (06:28→17:00)
[2016-10-08] MEDS: Pantoprazole 40 mg EC Tab PO SCH (06:28)
[2016-10-08 07:00] LABS: BASO # 0.01 K/mm3 (0.0-2.0); BASO % 0.1 % (0.0-3.0); GRAN # 12.46 (1.4-6.5); GRAN % 75.8 % (50.0-68.0); HEMATOCRIT 29.1 % (36.0-48.0); LYMPH % 18.1 % (22.0-35.0); MEAN CELL VOLUME 68.3 fl (80.0-105.0); MEAN CORPUSCULAR HEMOGLOBIN 21.6 pg (25.0-35.0); MEAN CORPUSCULAR HGB CONC 31.6 g/dl (31.0-37.0); MEAN PLATELET VOLUME 8.7 fl (7.0-11.0); RED CELL DISTRIBUTION WIDTH 17.6 % (11.5-14.5); WHITE BLOOD COUNT 16.4 10^3/ul (4.5-11.0)
[2016-10-08 07:19] LABS: ALB/GLOB RATIO 1.1 (1.1-1.8); ALKALINE PHOSPHATASE 49 U/L (38-133); ALT/SGPT 62 U/L (7-56); AST/SGOT 30 U/L (15-39); BILIRUBIN,DIRECT 0.1 mg/dL (0.0-0.4); BILIRUBIN,TOTAL 0.1 mg/dL (0.2-1.3); BLOOD UREA NITROGEN 14 mg/dL (7-21); CALCIUM 8.3 mg/dL (8.4-10.5); CARBON DIOXIDE 25 mmol/L (21-33); CHLORIDE 111 mmol/L (98-107); GFR AFRICAN-AMERICAN > 60; GLUCOSE,RANDOM 86 mg/dL (70-110); MAGNESIUM 2.2 mg/dL (1.7-2.2); PHOSPHOROUS 2.5 mg/dL (2.5-4.5); POTASSIUM 3.6 mmol/L (3.6-5.0); SODIUM 143 mmol/L (132-148); TOTAL PROTEIN 6.1 g/dL (5.8-8.3)
--- NOTE | 2016-10-08 08:01 | PN ---
DATE: 10/07/2016 SUBJECTIVE: The is in bed in no acute distress. On exam, the patient is doing well. She wants to be discharged. She was seen early this morning. She states all her symptoms have completely resolved. PHYSICAL EXAMINATION: VITAL SIGNS: Temperature is 98, blood pressure is 150/80, respiratory rate is 18, and heart rate of 57. HEENT: Unremarkable. NECK: Supple. LUNGS: Decreased breath sounds. HEART: Normal S1 and S2. ABDOMEN: Soft, nontender. LABORATORY DATA: Reveals a white count is around 18,000, platelets of 342. Chemistries are noted: BUN of 14, creatinine of 0.9. Urinalysis is noted. WBC is 6852, WBC is cloudy appearance mostly polys with a high protein and RPR is negative and HIV is negative. Bacterial antigen is pending. Microbiology reveals the nasal MRSA is not detected. CSF culture are no growth. Blood cultures are no growth. Urine cultures are no growth and review of orders reveals the patient to be on vancomycin and ceftriaxone. The patient was on steroids. I discussed the continuous steroids with the resident in charge of the case and asked for ENT consultation. The patient also has thoracic MRI. No abnormalities are noted and a lumbar MRI is noted. ASSESSMENT AND PLAN: This is a 36-year-old female with sepsis secondary to acute meningitis, although suspected arterial cultures are negative, leukocytosis improving. Ideally, would like a repeat spinal tap to review the WBCs and would like the ENT consultation, this is behaving as a meningitis to repair meningeal focus, sphenoid sinus being sinus in question and old cultures are negative. Awaiting for ENT consultation as I discussed with the resident charge of the case this morning and check of the repeat spinal tap to review the number of WBCs in the spinal fluid and she will have a CBC in the a.m. for WBCs . Richi Liang MD
[2016-10-08] MEDS: cefTRIAXone 2 GM IN NS 2 GM/100 ML BAG IVPB SCH ×2 (09:09→21:34)
--- NOTE | 2016-10-08 09:40 | PN ---
DATE: 10/07/2016 SUBJECTIVE: The patient is seen in room number 574, bed 2. The patient is out of bed to chair. The patient's 13-system review was negative for headache, negative for fever, and negative for chills. Negative for neck rigidity. Negative for sore throat and negative for coughing. The patient has been out of bed to chair. PHYSICAL EXAMINATION VITAL SIGNS: The patient's vital signs as per [facility] vital signs, which were reviewed. HEAD AND NECK: The patient's head examination shows previous craniectomy surgical scar. No neck rigidity. Pinkish pale conjunctivae. Anicteric sclerae. Dry oral mucosa. No neck rigidity. No Kernig's and Brudzinski's. CHEST: Examination symmetrical. LUNGS: Examination shows no rales, crackles or wheezing. CARDIOVASCULAR: Examination reveals S1 and S2, regular rhythm. ABDOMEN: Soft. Positive bowel sound. GENITALIA: Female. RECTAL: Examination is deferred. EXTREMITIES: Shows no pitting edema, no calf tenderness, and no Homans' sign. NEUROLOGIC: The patient is alert, awake, and oriented x3. Cranial nerve II through XII intact. Gait examination is independent. VASCULAR EXAMINATION: Palpable pulses and plantars are downward. DTRs are 2+. Gait examination is independent. DIAGNOSTICS: Diagnostic data reviewed. The patient still has elevated WBC, probably reactive probably secondary to IV Decadron which has been stopped,. Chemistries, electrolytes, and LFTs are all reviewed. The patient's examined with the medical liaison. The patient was seen on rounds with medical residents. For further details of the patient's today's progress note, please refer to the progress note by the medical liaison from October 07. Recommendations: from infectious disease, neurology noted and explained and reinforced to the patient. IMPRESSION AND PLAN 1. Sepsis. 2. Most likely and most probable bacterial meningitis. 3. Leukocytosis with granulocytosis. 4. Possible reactive leukocytosis secondary to intravenous Decadron. 5. Sickle cell trait. 6. Microcytic iron deficiency anemia. 7. History of menorrhagia. 8. 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 9. Elevated erythrocyte sedimentation rate. 10. Elevated C-reactive protein. 11. Obesity with elevated body mass index. 12. Status post lumbar puncture. 13. 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 14. Mild degenerative joint disease and degenerative disk disease of the cervical and lumbar spine. 1. Possible and most likely bacterial meningitis. 2. Status post spinal tap and lumbar puncture. 3. Microcytic anemia and iron deficiency anemia. 4. Obesity with elevated body mass index. 5. History of right-sided craniectomy. 6. Complete opacification of the sphenoid sinus with possible sphenoid sinusitis. 7. History of anemia. 8. Sickle cell trait. 9. Status post fever. 1. Sepsis. 2. Acute suspected bacterial meningitis. 3. History of sickle cell trait. 4. Iron deficiency anemia. 5. Obesity with elevated body mass index. 6. Status post craniectomy. 7. High-grade fever. 8. Leukocytosis with granulocytosis and bandemia. 9. Bandemia. 10. Elevated erythrocyte sedimentation rate. 11. Iron deficiency anemia. 12. Proteinuria. 13. Pyuria. 14. Right cerebellar hemisphere, craniectomy and craniotomy. 15. Opacified sphenoid sinus etiology undetermined. 16. Iron deficiency microcytic anemia. 17. History of menorrhagia secondary to fibroid. 1. Most likely bacterial meningitis. 2. High-grade fever. 3. Tachycardia. 4. Hypotension. 5. Systemic inflammatory response syndrome. 6. Leukocytosis. 7. Microcytic anemia. 8. Bandemia. 9. Lactic acidosis. 10. Hyperglycemia. 11. Proteinuria. 12. Bacteriuria. 13. Post occipital craniotomy and craniectomy with C5, C6, C7 cervical spondylosis. 14. Cervical spine foramen narrowing and degenerative disc disease. 15. Bilateral hyperplastic cervical lymphadenopathy. 16. Right cerebellar suboccipital craniotomy and craniectomy. 17. Sphenoid sinus complete opacification with the left sphenoid sinus bony defect, possible intracranial infection. 1. Possible and most likely bacterial meningitis. 2. Status post spinal tap and lumbar puncture. 3. Microcytic anemia and iron deficiency anemia. 4. Obesity with elevated body mass index. 5. History of right-sided craniectomy. 6. Complete opacification of the sphenoid sinus with possible sphenoid sinusitis. 7. History of anemia. 8. Sickle cell trait. 9. Status post fever. 1. Sepsis. 2. Acute suspected bacterial meningitis. 3. History of sickle cell trait. 4. Iron deficiency anemia. 5. Obesity with elevated body mass index. 6. Status post craniectomy. 7. High-grade fever. 8. Leukocytosis with granulocytosis and bandemia. 9. Bandemia. 10. Elevated erythrocyte sedimentation rate. 11. Iron deficiency anemia. 12. Proteinuria. 13. Pyuria. 14. Right cerebellar hemisphere, craniectomy and craniotomy. 15. Opacified sphenoid sinus etiology undetermined. 16. Iron deficiency microcytic anemia. 17. History of menorrhagia secondary to fibroid. 1. Sepsis. 2. Acute suspected bacterial meningitis. 3. History of sickle cell trait. 4. Iron deficiency anemia. 5. Obesity with elevated body mass index. 6. Status post craniectomy. 7. High-grade fever. 8. Leukocytosis with granulocytosis and bandemia. 9. Bandemia. 10. Elevated erythrocyte sedimentation rate. 11. Iron deficiency anemia. 12. Proteinuria. 13. Pyuria. 14. Right cerebellar hemisphere, craniectomy and craniotomy. 15. Opacified sphenoid sinus etiology undetermined. 16. Iron deficiency microcytic anemia. 17. History of menorrhagia secondary to fibroid. 1. Most likely bacterial meningitis. 2. High-grade fever. 3. Tachycardia. 4. Hypotension. 5. Systemic inflammatory response syndrome. 6. Leukocytosis. 7. Microcytic anemia. 8. Bandemia. 9. Lactic acidosis. 10. Hyperglycemia. 11. Proteinuria. 12. Bacteriuria. 13. Post occipital craniotomy and craniectomy with C5, C6, C7 cervical spondylosis. 14. Cervical spine foramen narrowing and degenerative disc disease. 15. Bilateral hyperplastic cervical lymphadenopathy. 16. Right cerebellar suboccipital craniotomy and craniectomy. 17. Sphenoid sinus complete opacification with the left sphenoid sinus bony defect, possible intracranial infection. PLAN: At this time, the patient is to be continued on IV antibiotics as per infectious disease recommendation. Which was reviewed from October 06. The patient was seen by Dr. Butler, his recommendation is noted. It has been advised to continue Rocephin and vancomycin, which has been reinforced to the patient. The patient was advised that she still needs to continue with inpatient management with IV vancomycin and Rocephin.. At this time, the patient's further management will be dependent upon the patient's clinical condition, hemodynamic status and as per the patient response to therapeutic intervention as per the patient's diagnostic test results and as per recommendation by all physicians involved in the care of the patient. The patient updated about her condition, diagnosis, treatment plan and management plan, etc., in detail. All questions and concerns answered to her satisfaction. Dictated and electronically signed, not read. Ced Bettencourt MD [facility]
[2016-10-08] MEDS ORDERED: Lidocaine 1% Inj (20ml) IJ STA (12:30)
[2016-10-08 13:40] LABS: FLUID TYPE SPINAL FLUID
[2016-10-08 14:44] LABS: CSF NEUTROPHIL 50 % (0-0); CSF TOTAL COUNT 100 (0-0)
--- NOTE | 2016-10-08 16:01 | PN ---
NEUROLOGY PROGRESS NOTE DATE: SUBJECTIVE: The patient is lying on the bed in no acute distress. Denies having any headache. PHYSICAL EXAMINATION: VITAL SIGNS: Her blood pressure is 155/83, heart rate is 60 per minute, breathing at the rate of 16 per minute, temperature is 98.3 degrees Fahrenheit. HEENT: Head is normocephalic and atraumatic. NECK: Supple. There are no carotid bruits. LUNGS: Clear. CARDIOVASCULAR: S1 and S2, audible. No murmurs. ABDOMEN: Soft and nontender. Bowel sounds are present. NEUROLOGICAL: Mental Status: The patient is awake, alert, oriented to time, place, and person. Speech is fluent. Naming and repetition is normal. Memory and cognition are intact. Cranial Nerve Examination: Pupils are 4 mm bilaterally reactive to light. Visual cervantes are full. Extraocular movements are intact. There is no facial asymmetry. Palate is upgoing bilaterally and tongue is midline. Motor Examination: Tone is normal and power is 5/5 bilaterally in all extremities, reflexes +2 and symmetrical. Plantars downgoing bilaterally. Cerebellar Examination: [id number] shows no dysmetria. Gait is narrow based. LABORATORY DATA: Labs reviewed shows on 10/05/2016, WBC 25.3, hemoglobin 9.5, hematocrit 29.3 and platelets of 17.7. Her sodium is 146, potassium 3.9, chloride of 115, carbon dioxide content of 21, BUN of 10, creatinine 0.8 and glucose of 127. IMPRESSION AND PLAN: 1. Meningitis. Possible parameningeal focus. 2. Headaches secondary to above which is better now. 3. History of brain tumor. RECOMMENDATIONS: 1. The patient is to be continued on IV antibiotics. 2. The patient's case was discussed with infectious disease physician and was decided to repeat lumbar puncture to see if WBC count is coming down. 3. The patient's headaches has completely resolved now. 4. The patient may have p.r.n. analgesics. 5. Please continue other treatment supportive care. Thank you for the opportunity to participate in the care of this patient. Milton Carvajal MD
--- NOTE | 2016-10-08 17:31 | CT ---
PROCEDURE: CT scan sinuses dated 10/08/2016 HISTORY: Sphenoid sinusitis. COMPARISON: Comparison made with CT scan of the brain and cervical spine as well as MRI of the brain wall dated 04/04/2016. . TECHNIQUE: Contiguous helical/transaxial CT images of the paranasal sinuses were obtained. Coronal and sagittal reformats were generated. Radiation dose: Total exam DLP = 256.47 mGy-cm. This CT exam was performed using one or more of the following dose reduction techniques: Automated exposure control, adjustment of the mA and/or kV according to patient size, and/or use of iterative reconstruction technique. . Findings: The current study once again reveals the presence of a localized defect measuring approximately 5.9 mm AP x 3.4 mm cc involving the at anterior margin left lateral wall of the left chamber sphenoid sinus. There is subtotal opacification of the left chamber sphenoid sinus. . The remaining shahid appear intact so far as can be seen. The the sphenoethmoidal recesses appear patent. Old fracture deformity anterior aspect right lamina papyracea with collapse of a few regions subjacent right-sided anterior ethmoid air cells. Small amount of orbital fat has herniated through the defect occupying the collapsed ethmoid air cells. In addition, there is also old fracture deformity of the inferomedial aspect of the right orbital floor which is also associated with herniated orbital fat inferiorly through the defect occupying the roof of the right maxillary antrum. Slight at inferior displacement of the right inferior rectus muscle. . Ostiomeatal complexes are patent. Re- demonstrated is hypoplasia/ under pneumatization of the frontal sinuses. Frontal recesses are patent. . Note also again made of suboccipital craniectomy defect with encephalomalacia changes of the cerebellum and right parasagittal vermis with slight ex vacuo dilatation of the 4th ventricle. Clinical correlation with surgical history recommended. Impression: There is a small defect anterior margin left lateral wall left chamber sphenoid sinus. Subtotal opacification left chamber sphenoid sinus. Please refer to MRI of the brain for additional details. . Old fracture deformities of the right lamina papyracea and right medial orbital floor with herniation of orbital fat through both defects. There is also slight inferior displacement of the right inferior rectus muscle. Postoperative changes posterior fossa as above. Please refer to prior MRI of the brain for additional details
--- NOTE | 2016-10-08 21:09 | CON ---
DATE: 10/08/2016 REASON FOR CONSULTATION: Sinusitis, rule out meningitis caused by sinusitis. HISTORY OF PRESENT ILLNESS: This is a 36-year-old female admitted to [facility] after a two-week history of sinusitis. Patient was having purulent discharge at the time along with headaches. She was admitted to the hospital. She was evaluated by infectious disease and also internal medicine and it was found that the patient had meningitis on a spinal tap. CAT scan of the brain along with MRI showed sphenoid sinusitis with a suspected defect in the lateral aspect of the sphenoid sinus on the left. ENT was asked for consultation. Patient was seen and examined with agreement. She feels she has improved drastically throughout her hospitalization with antibiotic treatment. She only has mild pain between the eyes at this point, which has been improving since her hospitalization. She does have a significant history as a child of having neurosurgical procedure to remove a tumor in the brain where they took a suboccipital approach. Patient does attest to getting approximately four sinus infections per year, which she has treated with antibiotics. She sees an smasher hand on a regular basis. I personally had a discussion with the infectious disease doctor, Dr. Liang and the patient's primary medical doctor, Dr. Corey after evaluating the patient. REVIEW OF SYSTEMS: A 12-point review of systems is negative except as per HPI. PAST MEDICAL HISTORY: Significant for brain tumor removal as a child, immunizations up to date. Significant for sinusitis. SURGICAL HISTORY: Brain tumor. SOCIAL HISTORY: Light smoker less than 10 cigarettes a day. CURRENT MEDICATIONS: Acetaminophen 650 mg, sodium chloride IV while in the hospital, ceftriaxone 2 g IV piggyback b.i.d., vancomycin IV piggyback q. 12 hours, pantoprazole 40 mg IV. These are her hospital medications, outpatient none. ALLERGIES: NO KNOWN DRUG ALLERGIES. SOCIAL HISTORY: A light smoker, less than 10 per day. Denies any illicit drug use or alcohol. FAMILY HISTORY: Noncontributory. PHYSICAL EXAMINATION: VITAL SIGNS: Afebrile. Vital signs stable. Blood pressure was mildly elevated at 155/83, I guess today's, 10/07/2016, at 1600 hours. HEENT: Ears: Tympanic membranes visualized. No injection. Canals patent. Nares: No rhinitis. Mild inflammation. Septum deviation to patient's left. Oropharynx: No erythema or exudate floor of mouth or basal tongue lesions. NECK: Supple. No adenopathy. Trachea midline. No thyroid nodularity. PROCEDURE: Flexible fiberoptic laryngoscopy was performed. Patient's anatomy could not be clearly visualized with anterior rhinoscopy; therefore, endoscopy was needed to assess the patient. The nasal laryngoscope was passed through patient's right naris. All turbinates were visualized, mild inflammation of all the turbinates. The sphenoethmoidal reassess appeared normal in nature with mild inflammation. No pus was noted. The middle meatus also was free of pus. The same procedure was performed for the left side. There was significant septal deviation to this side. It was difficult to pass the scope fully through the nose. What was visualized was mild inflammation of the turbinates. The middle meatus also had mild inflammation. The sphenoethmoidal reassess was difficult to visualize secondary to limitation of the scope going through the nose. LABORATORY DATA: White blood cell count at 16.4, hemoglobin 9.2, hematocrit 21, and platelets 324. Repeat spinal tap is pending. IMPRESSION: 1. Acute on chronic sinusitis. 2. Acute sphenoid sinusitis with a small defect of the sphenoid sinus. 3. Meningitis, may have a sinusitis contribution to her presentation. 4. Headaches. PLAN: 1. Continue IV antibiotics. 2. Order CAT scan of the sinuses with and without contrast. 3. Your infectious disease management. 4. Patient is to follow up as an outpatient, reconsult if symptoms progress. 5. A business card was given to the patient for her to follow up in the office. Miguel Ángel Murillo DO
--- NOTE | 2016-10-08 22:20 | PN ---
DATE: 10/09/2016 SUBJECTIVE: The patient seen today in room #574, bed 2. The patient is out of bed to chair, watching TV. REVIEW OF SYSTEMS: The patient's 13-system review was negative for headache. Negative for blurred vision. Negative for photophobia. Negative for neck pain. Negative for fever or chills. Negative for nausea, vomiting or diarrhea. PHYSICAL EXAMINATION: VITAL SIGNS: T-max, the patient is afebrile. Heart rate is 74-82 and respirations 18-20. Blood pressure 118/74, 128/70, 130/84. O2 saturations is mid to high 90s. HEENT: Head examination shows right-sided craniectomy surgical scar. HENT examination shows pinkish pale conjunctivae. Anicteric sclerae. No oropharyngeal lesion. NECK: No neck rigidity. CHEST: Kyphosis. CARDIOPULMONARY: S1 and S2, regular rhythm. LUNGS: Show no rales, crackles or wheezing. ABDOMEN: Soft and protuberant. Positive bowel sounds. No costovertebral angle tenderness. No epigastric or periumbilical tenderness. No right and left upper and lower quadrant tenderness. No guarding. No rigidity. GENITALIA: Female. RECTAL: Deferred. EXTREMITIES: Shows no pitting edema. No calf tenderness. No Homans' signs. NEUROLOGIC: The patient is alert, awake and oriented x 3. Cranial nerves II through XII intact. Gait examination is independent. VASCULAR: Peripheral pulses. PSYCHIATRIC: Negative for anxiety or depression. Negative for suicidal or homicidal ideation. Negative for auditory or visual hallucination. LABORATORY DATA: The patient's diagnostic data from today reviewed, the patient's MRI and CT have reviewed. The patient's management discussed with Dr. Liang from infectious disease. He has recommended the patient will require repeat spinal tap as the patient seen an initial spinal tap and lumbar puncture, which showed significant amount of leukocytosis and elevated WBC count and elevated protein. In addition, the patient has also been advised to have an ENT evaluation. IMPRESSION: 1. Sepsis secondary to most probable bacterial meningitis. 2. Microcytic anemia with sickle cell trait. 3. Leukocytosis etiology either reactive versus secondary to sepsis. 4. Morbid obesity. 5. History of right cerebellar and right-sided craniectomy and craniotomy, status post benign brain tumor. 6. History of menorrhagia. 7. Iron-deficiency microcytic anemia. 8. Sphenoid sinusitis with complete opacification of sphenoid sinus. 9. Questionable and possible parameningeal meningitis secondary to sphenoid sinus. 10. Cervical and lumbar spine degenerative disk disease (mild). 1. Sepsis. 2. Most likely and most probable bacterial meningitis. 3. Leukocytosis with granulocytosis. 4. Possible reactive leukocytosis secondary to intravenous Decadron. 5. Sickle cell trait. 6. Microcytic iron deficiency anemia. 7. History of menorrhagia. 8. 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 9. Elevated erythrocyte sedimentation rate. 10. Elevated C-reactive protein. 11. Obesity with elevated body mass index. 12. Status post lumbar puncture. 13. 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 14. Mild degenerative joint disease and degenerative disk disease of the cervical and lumbar spine. 1. Possible and most likely bacterial meningitis. 2. Status post spinal tap and lumbar puncture. 3. Microcytic anemia and iron deficiency anemia. 4. Obesity with elevated body mass index. 5. History of right-sided craniectomy. 6. Complete opacification of the sphenoid sinus with possible sphenoid sinusitis. 7. History of anemia. 8. Sickle cell trait. 9. Status post fever. 1. Sepsis. 2. Acute suspected bacterial meningitis. 3. History of sickle cell trait. 4. Iron deficiency anemia. 5. Obesity with elevated body mass index. 6. Status post craniectomy. 7. High-grade fever. 8. Leukocytosis with granulocytosis and bandemia. 9. Bandemia. 10. Elevated erythrocyte sedimentation rate. 11. Iron deficiency anemia. 12. Proteinuria. 13. Pyuria. 14. Right cerebellar hemisphere, craniectomy and craniotomy. 15. Opacified sphenoid sinus etiology undetermined. 16. Iron deficiency microcytic anemia. 17. History of menorrhagia secondary to fibroid. 1. Most likely bacterial meningitis. 2. High-grade fever. 3. Tachycardia. 4. Hypotension. 5. Systemic inflammatory response syndrome. 6. Leukocytosis. 7. Microcytic anemia. 8. Bandemia. 9. Lactic acidosis. 10. Hyperglycemia. 11. Proteinuria. 12. Bacteriuria. 13. Post occipital craniotomy and craniectomy with C5, C6, C7 cervical spondylosis. 14. Cervical spine foramen narrowing and degenerative disc disease. 15. Bilateral hyperplastic cervical lymphadenopathy. 16. Right cerebellar suboccipital craniotomy and craniectomy. 17. Sphenoid sinus complete opacification with the left sphenoid sinus bony defect, possible intracranial infection. 1. Sepsis. 2. Most likely and most probable bacterial meningitis. 3. Leukocytosis with granulocytosis. 4. Possible reactive leukocytosis secondary to intravenous Decadron. 5. Sickle cell trait. 6. Microcytic iron deficiency anemia. 7. History of menorrhagia. 8. 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 9. Elevated erythrocyte sedimentation rate. 10. Elevated C-reactive protein. 11. Obesity with elevated body mass index. 12. Status post lumbar puncture. 13. 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 14. Mild degenerative joint disease and degenerative disk disease of the cervical and lumbar spine. 1. Possible and most likely bacterial meningitis. 2. Status post spinal tap and lumbar puncture. 3. Microcytic anemia and iron deficiency anemia. 4. Obesity with elevated body mass index. 5. History of right-sided craniectomy. 6. Complete opacification of the sphenoid sinus with possible sphenoid sinusitis. 7. History of anemia. 8. Sickle cell trait. 9. Status post fever. 1. Sepsis. 2. Acute suspected bacterial meningitis. 3. History of sickle cell trait. 4. Iron deficiency anemia. 5. Obesity with elevated body mass index. 6. Status post craniectomy. 7. High-grade fever. 8. Leukocytosis with granulocytosis and bandemia. 9. Bandemia. 10. Elevated erythrocyte sedimentation rate. 11. Iron deficiency anemia. 12. Proteinuria. 13. Pyuria. 14. Right cerebellar hemisphere, craniectomy and craniotomy. 15. Opacified sphenoid sinus etiology undetermined. 16. Iron deficiency microcytic anemia. 17. History of menorrhagia secondary to fibroid. 1. Most likely bacterial meningitis. 2. High-grade fever. 3. Tachycardia. 4. Hypotension. 5. Systemic inflammatory response syndrome. 6. Leukocytosis. 7. Microcytic anemia. 8. Bandemia. 9. Lactic acidosis. 10. Hyperglycemia. 11. Proteinuria. 12. Bacteriuria. 13. Post occipital craniotomy and craniectomy with C5, C6, C7 cervical spondylosis. 14. Cervical spine foramen narrowing and degenerative disc disease. 15. Bilateral hyperplastic cervical lymphadenopathy. 16. Right cerebellar suboccipital craniotomy and craniectomy. 17. Sphenoid sinus complete opacification with the left sphenoid sinus bony defect, possible intracranial infection. 1. Possible and most likely bacterial meningitis. 2. Status post spinal tap and lumbar puncture. 3. Microcytic anemia and iron deficiency anemia. 4. Obesity with elevated body mass index. 5. History of right-sided craniectomy. 6. Complete opacification of the sphenoid sinus with possible sphenoid sinusitis. 7. History of anemia. 8. Sickle cell trait. 9. Status post fever. 1. Sepsis. 2. Acute suspected bacterial meningitis. 3. History of sickle cell trait. 4. Iron deficiency anemia. 5. Obesity with elevated body mass index. 6. Status post craniectomy. 7. High-grade fever. 8. Leukocytosis with granulocytosis and bandemia. 9. Bandemia. 10. Elevated erythrocyte sedimentation rate. 11. Iron deficiency anemia. 12. Proteinuria. 13. Pyuria. 14. Right cerebellar hemisphere, craniectomy and craniotomy. 15. Opacified sphenoid sinus etiology undetermined. 16. Iron deficiency microcytic anemia. 17. History of menorrhagia secondary to fibroid. 1. Sepsis. 2. Acute suspected bacterial meningitis. 3. History of sickle cell trait. 4. Iron deficiency anemia. 5. Obesity with elevated body mass index. 6. Status post craniectomy. 7. High-grade fever. 8. Leukocytosis with granulocytosis and bandemia. 9. Bandemia. 10. Elevated erythrocyte sedimentation rate. 11. Iron deficiency anemia. 12. Proteinuria. 13. Pyuria. 14. Right cerebellar hemisphere, craniectomy and craniotomy. 15. Opacified sphenoid sinus etiology undetermined. 16. Iron deficiency microcytic anemia. 17. History of menorrhagia secondary to fibroid. 1. Most likely bacterial meningitis. 2. High-grade fever. 3. Tachycardia. 4. Hypotension. 5. Systemic inflammatory response syndrome. 6. Leukocytosis. 7. Microcytic anemia. 8. Bandemia. 9. Lactic acidosis. 10. Hyperglycemia. 11. Proteinuria. 12. Bacteriuria. 13. Post occipital craniotomy and craniectomy with C5, C6, C7 cervical spondylosis. 14. Cervical spine foramen narrowing and degenerative disc disease. 15. Bilateral hyperplastic cervical lymphadenopathy. 16. Right cerebellar suboccipital craniotomy and craniectomy. 17. Sphenoid sinus complete opacification with the left sphenoid sinus bony defect, possible intracranial infection. PLAN: At this time, the patient has been re-consulted with neurologist Dr. Milton Carvajal and for repeat lumbar puncture and spinal tap, which will be done sometime later today. The patient has also been consulted with ENT Dr. Murillo, extensive details were discussed with ENT, neurology and infectious disease. The patient will be undergoing CT of the sinuses with contrast as per ENT recommendation. The patient will be continued on Rocephin and vancomycin as per infectious disease recommendation. The patient's other medications will be continued as per the MAR of today. The patient has been seen, course explained, further details, further updates as per infectious disease, neurology and ENT recommendations. At this time, the patient will be continued an inpatient treatment with above therapeutic intervention and close infectious disease, ENT and neurology followup. Dictated and electronically signed, not read. Ced Bettencourt MD [employer]
[2016-10-09] MEDS: Sodium Chloride 0.45% 1,000 ML IV SCH (04:23)
[2016-10-09] MEDS: Pantoprazole 40 mg EC Tab PO SCH (05:33)
--- NOTE | 2016-10-09 05:51 | PN ---
DATE: 10/08/2016 SUBJECTIVE: The patient is in bed and seen this morning in 574, bed 2. She is doing much better. No headaches, no fevers. Overall, greatly improved. PHYSICAL EXAMINATION: VITAL SIGNS: Temperature is 97, blood pressure is 140/90, respiratory rate of 16. HEENT: Unremarkable. NECK: Supple. CARDIOPULMONARY: Normal S1, S2. LUNGS: Decreased breath sounds. ABDOMEN: Soft. LABORATORY DATA: Reveals a white count of 16,400, hemoglobin of 9. Platelets are 324. Coagulation is noted. Blood gases are reviewed. Chemistries are reviewed, BUN 14, creatinine 0.9. Urinalysis is noted. Patient's WBC count repeat spinal tap from today is down to 38 with 50% neutrophils, 40% lymphocytes with protein is down to 54, crypt antigen is negative, bacterial antigen not detected by latex agglutination test Haemophilus, Strep Neisseria. CSF final was not detected by latex agglutination. The RPR is negative. HIV is negative. Microbiology: All cultures are negative. Patient had the CAT scan of the sinuses today. There is a defect in the anterior margin of the left lateral wall of left chamber of sphenoid sinus, subtotal opacification of the left chamber sphenoid sinus. Dr. Murillo's consultation is reviewed and appreciated. Dr. Carvajal's progress note from today is reviewed and appreciated that he performed repeat spinal tap. ASSESSMENT AND PLAN: The patient is a 36-year old female who is admitted with sepsis secondary to acute meningitis, probable bacterial emulsion secondary to parameningeal focus with sphenoid sinuses as a possible source. Appreciate an ENT consultation and patient is to follow up with ENT as outpatient. Today is day #5 of antibiotics. We will check tomorrow's CBC. Patient continues to improve. Maybe able to switch to p.o. antibiotics to complete therapy for sinusitis. Follow up with ENT, primary doctor and neurology as outpatient. We will make further recommendations. Her CBC has been requested for a.m. Case discussed with Dr. Bettencourt whose input is greatly appreciated. Richi Liang MD
[2016-10-09 06:32] LABS: BASO # 0.01 K/mm3 (0.0-2.0); BASO % 0.1 % (0.0-3.0); EOS # 0.1 (0.0-0.7); EOS % 1.2 % (1.5-5.0); GRAN # 6.5 (1.4-6.5); GRAN % 58.3 % (50.0-68.0); HEMATOCRIT 32.6 % (36.0-48.0); LYMPH # 3.5 (1.2-3.4); LYMPH % 31.5 % (22.0-35.0); MEAN CELL VOLUME 68.8 fl (80.0-105.0); MEAN CORPUSCULAR HEMOGLOBIN 21.9 pg (25.0-35.0); MEAN CORPUSCULAR HGB CONC 31.9 g/dl (31.0-37.0); MONO % 8.9 % (1.0-6.0); RED CELL DISTRIBUTION WIDTH 17.4 % (11.5-14.5); WHITE BLOOD COUNT 11.1 10^3/ul (4.5-11.0)
[2016-10-09 07:04] LABS: ALB/GLOB RATIO 1.1 (1.1-1.8); ALKALINE PHOSPHATASE 54 U/L (38-133); ALT/SGPT 60 U/L (7-56); AST/SGOT 24 U/L (15-39); BILIRUBIN,DIRECT 0.2 mg/dL (0.0-0.4); BILIRUBIN,TOTAL 0.4 mg/dL (0.2-1.3); BLOOD UREA NITROGEN 15 mg/dL (7-21); CALCIUM 8.2 mg/dL (8.4-10.5); CARBON DIOXIDE 23 mmol/L (21-33); CHLORIDE 109 mmol/L (98-107); GFR AFRICAN-AMERICAN > 60; GLUCOSE,RANDOM 77 mg/dL (70-110); MAGNESIUM 2.2 mg/dL (1.7-2.2); PHOSPHOROUS 3.3 mg/dL (2.5-4.5); POTASSIUM 3.6 mmol/L (3.6-5.0); SODIUM 141 mmol/L (132-148); TOTAL PROTEIN 6.4 g/dL (5.8-8.3)
[2016-10-09 08:41] VITALS: BP 117/79; PULSE 91; TEMP 98.2
--- NOTE | 2016-10-09 10:17 | PROCN ---
DATE: 10/08/2016 NAME OF PROCEDURE: Lumbar puncture. SURGEON: Milton Carvajal MD. DESCRIPTION OF PROCEDURE: After taking informed consent and taking all aseptic precaution, a 20 gauge needle was introduced and L2-3 interspace. Lidocaine 1% was given prior to putting in the spinal needle. Hoping pressure was About 6-7 mL of clear color less CSF was obtained. The patient tolerated the procedure very well. The patient advised not to lift head or get out of bed for 2 hours and to remain flat on the bed. CSF is sent to laboratory for evaluation. Thank you for the opportunity to participate in the care of this patient. Milton Carvajal MD
[2016-10-09] MEDS: cefTRIAXone 2 GM IN NS 2 GM/100 ML BAG IVPB SCH (10:52)
--- NOTE | 2016-10-09 14:15 | PN ---
DATE: 10/09/2016 SUBJECTIVE: The patient is in bed, no acute distress, nontoxic. PHYSICAL EXAMINATION: VITAL SIGNS: Temperature is 98, blood pressure is 117/70, respiratory rate of 18, heart rate of 91. HEENT: Unremarkable. NECK: Supple. LUNGS: Decreased breath sounds. HEART: Normal S1 and S2. ABDOMEN: Soft. LABORATORY DATA: Laboratory examination reveals a white count of 11,000, hemoglobin of 10, platelets of 361. Chemistries reveals a BUN of 15, creatinine of 1.0, C-reactive protein is greater than 15. Urinalysis is noted and CSF. WBC is down to 38. CAT scan of the sinuses are noted. Dr. Bettencourt's note is reviewed. Dr. Murillo's note is reviewed. Dr. Carvajal's note is reviewed. ASSESSMENT AND PLAN: This is a 36-year-old female admitted with sepsis secondary to acute probable bacterial meningitis secondary to parameningeal focus with sphenoid sinuses source. The patient is received 6 days of antibiotics, will switch to p.o. Augmentin x14 days. Followup with Dr. Murillo. The patient understands the importance and she states she will followup with Dr. Murillo for repeat imaging and possible surgical intervention if necessary as recommended by ENT and patient will be followup Dr. Bettencourt in the private office. Case was discussed with the patient at length this morning. Richi Liang MD
[2016-10-10 09:25] LABS: BACTERIAL ANTIGEN STATUS Negative
--- NOTE | 2016-10-11 18:26 | DS ---
LOCATION: The patient was in room 574, bed 2. HISTORY OF PRESENT ILLNESS: The was seen earlier this morning by Dr. Liang who cleared the patient for discharge yesterday. On 10/08/2016, the patient underwent ENT evaluation and repeat spinal tap by neurology as per infectious disease. The patient's for repeat spinal tap and ENT recommendation and the CAT scan of the sinuses results reviewed and explained to the patient, which she acknowledged and understood. The patient's vital signs; the patient is a afebrile. T-max is 98.4. The patient's blood pressure is ranging in 120 systolic to 70s and 80s diastolic, respirations 18-20, O2 sat is went to high 90s. The patient's physical examination is unchanged. Diagnostic data reviewed. The patient was explain about the repeat spinal tap results. CAT scan of the sinus results were explain to the patient. The patient was explained and reinforced about the recommendation by ENT and infectious disease. The patient's diagnostic data reviewed and explain from the 10/09/2016 and it was explained to the patient. FINAL IMPRESSION AND PLAN AND DISCHARGE DIAGNOSES: 1. Sepsis. 2. Most probable acute bacterial meningitis (resolved). 3. Status post spinal tap x2. 4. Cerebrospinal fluid, leukocytosis. 5. Status post headache. 6. Leukocytosis with granulocytosis. 7. Microcytic iron-deficiency anemia. 8. Sickle cell trait. 9. Elevated erythrocyte sedimentation rate. 10. History of right cerebellar craniectomy. 11. Complete opacification of the sphenoid sinus with sphenoid sinusitis. 12. Abnormal CAT scan of the sinuses. 13. Obesity. 1. Sepsis secondary to most probable bacterial meningitis. 2. Microcytic anemia with sickle cell trait. 3. Leukocytosis etiology either reactive versus secondary to sepsis. 4. Morbid obesity. 5. History of right cerebellar and right-sided craniectomy and craniotomy, status post benign brain tumor. 6. History of menorrhagia. 7. Iron-deficiency microcytic anemia. 8. Sphenoid sinusitis with complete opacification of sphenoid sinus. 9. Questionable and possible parameningeal meningitis secondary to sphenoid sinus. 10. Cervical and lumbar spine degenerative disk disease (mild). 1. Sepsis. 2. Most likely and most probable bacterial meningitis. 3. Leukocytosis with granulocytosis. 4. Possible reactive leukocytosis secondary to intravenous Decadron. 5. Sickle cell trait. 6. Microcytic iron deficiency anemia. 7. History of menorrhagia. 8. 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 9. Elevated erythrocyte sedimentation rate. 10. Elevated C-reactive protein. 11. Obesity with elevated body mass index. 12. Status post lumbar puncture. 13. 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 14. Mild degenerative joint disease and degenerative disk disease of the cervical and lumbar spine. 1. Possible and most likely bacterial meningitis. 2. Status post spinal tap and lumbar puncture. 3. Microcytic anemia and iron deficiency anemia. 4. Obesity with elevated body mass index. 5. History of right-sided craniectomy. 6. Complete opacification of the sphenoid sinus with possible sphenoid sinusitis. 7. History of anemia. 8. Sickle cell trait. 9. Status post fever. 1. Sepsis. 2. Acute suspected bacterial meningitis. 3. History of sickle cell trait. 4. Iron deficiency anemia. 5. Obesity with elevated body mass index. 6. Status post craniectomy. 7. High-grade fever. 8. Leukocytosis with granulocytosis and bandemia. 9. Bandemia. 10. Elevated erythrocyte sedimentation rate. 11. Iron deficiency anemia. 12. Proteinuria. 13. Pyuria. 14. Right cerebellar hemisphere, craniectomy and craniotomy. 15. Opacified sphenoid sinus etiology undetermined. 16. Iron deficiency microcytic anemia. 17. History of menorrhagia secondary to fibroid. 1. Most likely bacterial meningitis. 2. High-grade fever. 3. Tachycardia. 4. Hypotension. 5. Systemic inflammatory response syndrome. 6. Leukocytosis. 7. Microcytic anemia. 8. Bandemia. 9. Lactic acidosis. 10. Hyperglycemia. 11. Proteinuria. 12. Bacteriuria. 13. Post occipital craniotomy and craniectomy with C5, C6, C7 cervical spondylosis. 14. Cervical spine foramen narrowing and degenerative disc disease. 15. Bilateral hyperplastic cervical lymphadenopathy. 16. Right cerebellar suboccipital craniotomy and craniectomy. 17. Sphenoid sinus complete opacification with the left sphenoid sinus bony defect, possible intracranial infection. 1. Sepsis secondary to most probable bacterial meningitis. 2. Microcytic anemia with sickle cell trait. 3. Leukocytosis etiology either reactive versus secondary to sepsis. 4. Morbid obesity. 5. History of right cerebellar and right-sided craniectomy and craniotomy, status post benign brain tumor. 6. History of menorrhagia. 7. Iron-deficiency microcytic anemia. 8. Sphenoid sinusitis with complete opacification of sphenoid sinus. 9. Questionable and possible parameningeal meningitis secondary to sphenoid sinus. 10. Cervical and lumbar spine degenerative disk disease (mild). 1. Sepsis. 2. Most likely and most probable bacterial meningitis. 3. Leukocytosis with granulocytosis. 4. Possible reactive leukocytosis secondary to intravenous Decadron. 5. Sickle cell trait. 6. Microcytic iron deficiency anemia. 7. History of menorrhagia. 8. 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 9. Elevated erythrocyte sedimentation rate. 10. Elevated C-reactive protein. 11. Obesity with elevated body mass index. 12. Status post lumbar puncture. 13. 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 14. Mild degenerative joint disease and degenerative disk disease of the cervical and lumbar spine. 1. Possible and most likely bacterial meningitis. 2. Status post spinal tap and lumbar puncture. 3. Microcytic anemia and iron deficiency anemia. 4. Obesity with elevated body mass index. 5. History of right-sided craniectomy. 6. Complete opacification of the sphenoid sinus with possible sphenoid sinusitis. 7. History of anemia. 8. Sickle cell trait. 9. Status post fever. 1. Sepsis. 2. Acute suspected bacterial meningitis. 3. History of sickle cell trait. 4. Iron deficiency anemia. 5. Obesity with elevated body mass index. 6. Status post craniectomy. 7. High-grade fever. 8. Leukocytosis with granulocytosis and bandemia. 9. Bandemia. 10. Elevated erythrocyte sedimentation rate. 11. Iron deficiency anemia. 12. Proteinuria. 13. Pyuria. 14. Right cerebellar hemisphere, craniectomy and craniotomy. 15. Opacified sphenoid sinus etiology undetermined. 16. Iron deficiency microcytic anemia. 17. History of menorrhagia secondary to fibroid. 1. Most likely bacterial meningitis. 2. High-grade fever. 3. Tachycardia. 4. Hypotension. 5. Systemic inflammatory response syndrome. 6. Leukocytosis. 7. Microcytic anemia. 8. Bandemia. 9. Lactic acidosis. 10. Hyperglycemia. 11. Proteinuria. 12. Bacteriuria. 13. Post occipital craniotomy and craniectomy with C5, C6, C7 cervical spondylosis. 14. Cervical spine foramen narrowing and degenerative disc disease. 15. Bilateral hyperplastic cervical lymphadenopathy. 16. Right cerebellar suboccipital craniotomy and craniectomy. 17. Sphenoid sinus complete opacification with the left sphenoid sinus bony defect, possible intracranial infection. 1. Sepsis. 2. Most likely and most probable bacterial meningitis. 3. Leukocytosis with granulocytosis. 4. Possible reactive leukocytosis secondary to intravenous Decadron. 5. Sickle cell trait. 6. Microcytic iron deficiency anemia. 7. History of menorrhagia. 8. 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 9. Elevated erythrocyte sedimentation rate. 10. Elevated C-reactive protein. 11. Obesity with elevated body mass index. 12. Status post lumbar puncture. 13. 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 14. Mild degenerative joint disease and degenerative disk disease of the cervical and lumbar spine. 1. Possible and most likely bacterial meningitis. 2. Status post spinal tap and lumbar puncture. 3. Microcytic anemia and iron deficiency anemia. 4. Obesity with elevated body mass index. 5. History of right-sided craniectomy. 6. Complete opacification of the sphenoid sinus with possible sphenoid sinusitis. 7. History of anemia. 8. Sickle cell trait. 9. Status post fever. 1. Sepsis. 2. Acute suspected bacterial meningitis. 3. History of sickle cell trait. 4. Iron deficiency anemia. 5. Obesity with elevated body mass index. 6. Status post craniectomy. 7. High-grade fever. 8. Leukocytosis with granulocytosis and bandemia. 9. Bandemia. 10. Elevated erythrocyte sedimentation rate. 11. Iron deficiency anemia. 12. Proteinuria. 13. Pyuria. 14. Right cerebellar hemisphere, craniectomy and craniotomy. 15. Opacified sphenoid sinus etiology undetermined. 16. Iron deficiency microcytic anemia. 17. History of menorrhagia secondary to fibroid. 1. Most likely bacterial meningitis. 2. High-grade fever. 3. Tachycardia. 4. Hypotension. 5. Systemic inflammatory response syndrome. 6. Leukocytosis. 7. Microcytic anemia. 8. Bandemia. 9. Lactic acidosis. 10. Hyperglycemia. 11. Proteinuria. 12. Bacteriuria. 13. Post occipital craniotomy and craniectomy with C5, C6, C7 cervical spondylosis. 14. Cervical spine foramen narrowing and degenerative disc disease. 15. Bilateral hyperplastic cervical lymphadenopathy. 16. Right cerebellar suboccipital craniotomy and craniectomy. 17. Sphenoid sinus complete opacification with the left sphenoid sinus bony defect, possible intracranial infection. 1. Possible and most likely bacterial meningitis. 2. Status post spinal tap and lumbar puncture. 3. Microcytic anemia and iron deficiency anemia. 4. Obesity with elevated body mass index. 5. History of right-sided craniectomy. 6. Complete opacification of the sphenoid sinus with possible sphenoid sinusitis. 7. History of anemia. 8. Sickle cell trait. 9. Status post fever. 1. Sepsis. 2. Acute suspected bacterial meningitis. 3. History of sickle cell trait. 4. Iron deficiency anemia. 5. Obesity with elevated body mass index. 6. Status post craniectomy. 7. High-grade fever. 8. Leukocytosis with granulocytosis and bandemia. 9. Bandemia. 10. Elevated erythrocyte sedimentation rate. 11. Iron deficiency anemia. 12. Proteinuria. 13. Pyuria. 14. Right cerebellar hemisphere, craniectomy and craniotomy. 15. Opacified sphenoid sinus etiology undetermined. 16. Iron deficiency microcytic anemia. 17. History of menorrhagia secondary to fibroid. 1. Sepsis. 2. Acute suspected bacterial meningitis. 3. History of sickle cell trait. 4. Iron deficiency anemia. 5. Obesity with elevated body mass index. 6. Status post craniectomy. 7. High-grade fever. 8. Leukocytosis with granulocytosis and bandemia. 9. Bandemia. 10. Elevated erythrocyte sedimentation rate. 11. Iron deficiency anemia. 12. Proteinuria. 13. Pyuria. 14. Right cerebellar hemisphere, craniectomy and craniotomy. 15. Opacified sphenoid sinus etiology undetermined. 16. Iron deficiency microcytic anemia. 17. History of menorrhagia secondary to fibroid. 1. Most likely bacterial meningitis. 2. High-grade fever. 3. Tachycardia. 4. Hypotension. 5. Systemic inflammatory response syndrome. 6. Leukocytosis. 7. Microcytic anemia. 8. Bandemia. 9. Lactic acidosis. 10. Hyperglycemia. 11. Proteinuria. 12. Bacteriuria. 13. Post occipital craniotomy and craniectomy with C5, C6, C7 cervical spondylosis. 14. Cervical spine foramen narrowing and degenerative disc disease. 15. Bilateral hyperplastic cervical lymphadenopathy. 16. Right cerebellar suboccipital craniotomy and craniectomy. 17. Sphenoid sinus complete opacification with the left sphenoid sinus bony defect, possible intracranial infection. PLAN: At this time, the patient has been explained about the details of her medical condition by me, Dr. Murillo and infectious disease Dr. Liang. The patient is cleared for discharge by infectious disease and ENT. The patient's discharge medications are as follow; Augmentin 875 twice a day for at least 2 more weeks. The patient is at discharge followup with Dr. Bettencourt within 1 week. Discharge follow up with Dr. Murilol from ear, nose throat in 1 week. The patient's ENT recommendations were explained and infectious disease recommendation was explained to the patient regarding close ENT followup and repeat CAT scan of the sinuses in 2-4 weeks. The patient was also advised that the patient's CAT scan of the sinuses persist to show abnormality. The patient will most probably need an ear, nose, throat intervention and surgical intervention, which was explain to the patient by me and Dr. Murillo which she acknowledged and understood. The patient was advised followup in the office within 1 week. The patient was advised weight loss exercise. The patient was advised close [facility] followup for history of menorrhagia. Time spent in the entire discharge process more than 45 minutes. Dictated and electronically signed, not read. Ced Bettencourt MD MTDD
[2016-10-17 08:24] LABS: BACTERIAL ANTIGEN STATUS Not Detected
== END 2016-10-09 13:44 | disposition home or self-care (01) | DRG 871 ==
LOC: ED 21:42 → ERH 10-04 07:15 → CCU 10-04 10:12 → 5RSO 10-05 16:53
PROVIDERS: ADMIT Internal Medicine; ATTEND Internal Medicine
PROC: 009U3ZZ Drainage of Spinal Canal, Percutaneous Approach (ICD-10-PCS; principal; 2016-10-04)
PROC: 009U3ZX Drainage of Spinal Canal, Percutaneous Approach, Diagnostic (ICD-10-PCS; 2016-10-08)
DX: A41.9 Sepsis, unspecified organism (principal); G00.9 Bacterial meningitis, unspecified; E87.2 Acidosis; E66.01 Morbid (severe) obesity due to excess calories; D50.9 Iron deficiency anemia, unspecified; D57.3 Sickle-cell trait; J01.30 Acute sphenoidal sinusitis, unspecified; J32.3 Chronic sphenoidal sinusitis; M50.30 Other cervical disc degeneration, unspecified cervical region; R59.0 Localized enlarged lymph nodes; R73.9 Hyperglycemia, unspecified; R80.9 Proteinuria, unspecified; N92.0 Excessive and frequent menstruation with regular cycle; M47.816 Spondylosis without myelopathy or radiculopathy, lumbar region; M47.812 Spondylosis without myelopathy or radiculopathy, cervical region; M51.36 Other intervertebral disc degeneration, lumbar region; D25.9 Leiomyoma of uterus, unspecified; F17.210 Nicotine dependence, cigarettes, uncomplicated; Z68.33 Body mass index [BMI] 33.0-33.9, adult; Z86.011 Personal history of benign neoplasm of the brain

== ENCOUNTER 2017-05-10 12:27 | Emergency (ER) | payer BC ==
[2017-05-10 12:28] VITALS: BMI 32.9
[2017-05-10 12:41] VITALS: RESP 17; TEMP 99.3
[2017-05-10] MEDS ORDERED: Sodium Chloride 0.9% 1,000 ML IV STA (13:27)
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
[2017-05-10] MEDS ORDERED: DiphenhydrAMINE 50 mg/ml Inj IVP STA (13:28)
[2017-05-11 11:14] VITALS: BP 127/85; PULSE 95; O2SAT 100
== END 2017-05-10 16:06 | disposition home or self-care (01) ==
LOC: ED 12:27
DX: R51 Headache (principal); F17.210 Nicotine dependence, cigarettes, uncomplicated
CPT/HCPCS: 96361; 96374; 96375; 99284; J1200; J1885; J2765; J7040

== ENCOUNTER 2018-03-05 11:48 | Outpatient (CLI) | payer BC | END 2018-03-05 11:49 | disposition home or self-care (01) | LOC: RAD 11:49 ==

== ENCOUNTER 2018-03-16 16:29 | Outpatient (CLI) | payer BC | END 2018-03-16 16:30 | disposition home or self-care (01) | LOC: RAD 16:29 ==